=== PATIENT | male | born 1935 | race Caucasian/White ===

== ENCOUNTER 2016-09-19 12:01 | Inpatient (IN) | payer MEDICARE ==
[2016-09-19] MEDS ORDERED: SODIUM CHLORIDE 0.9% 1,000 ML IV STA (12:21)
[2016-09-19] MEDS ORDERED: RX INFO: IV CONTRAST WAS GIVEN 1 EACH MISC MISCELLANE PRN (12:34)
[2016-09-19 12:43] LABS: Basophils % (A) 0 %; CH 30.3; Eosinophils # (A) 0.1 k/uL (0-0.7); Eosinophils % (A) 1 %; HCT 44.4 % (39.0-53.0); HDW 2.77; HGB 14.9 gm/dL (13.0-17.5); Luc % (Auto) 2; Lymphocytes # (A) 1.7 k/uL (1.0-4.8); Lymphocytes % (A) 20 %; MCH 30.1 pg (25.0-35.0); MCHC 33.6 g/dL (31.0-37.0); MCV 89.5 fL (80.0-100.0); Mean Platelet Volume 6.7; Monocytes # (A) 0.5 k/uL (0-1.0); Monocytes % (A) 6 %; Neutrophils % (A) 70 %; RBC 4.96 m/uL (4.30-5.90); RDW 13.2 % (11.5-15.5); WBC 8.5 k/uL (3.8-10.6)
[2016-09-19 12:50] LABS: ALT 27 U/L (21-72); AST 26 U/L (17-59); Alkaline Phosphatase 69 U/L (38-126); Anion Gap 11 mmol/L; Blood Urea Nitrogen 24 mg/dL (9-20); Calcium 9.7 mg/dL (8.4-10.2); Carbon Dioxide 27 mmol/L (22-30); Chloride 105 mmol/L (98-107); Glucose 95 mg/dL (74-99); Non-African American GFR(MDRD) >60 (>60 ml/min/1.73 sqM); Potassium 4.7 mmol/L (3.5-5.1); Sodium 143 mmol/L (137-145); Total Bilirubin 1.2 mg/dL (0.2-1.3); Total Protein 7.6 g/dL (6.3-8.2)
[2016-09-19 12:51] LABS: INR 1.1 (<1.1); Prothrombin Time 10.6 sec (9.0-12.0)
--- NOTE | 2016-09-19 12:51 | CT ---
EXAMINATION TYPE: CT brain wo con DATE OF EXAM: 09/19/2016 12:46 PM COMPARISON: NONE HISTORY: Slurred speech x's [address] DLP: 1047.[address] of the brain was performed. The ventricles, basal cisterns and sulci overlying the cerebral convexities demonstrate mild enlargem ent. Small focal remote insult the left leahy radiata. There is no evidence for intracranial hemorrhage or sulcal effacement. There is decreased attenuation about the periventricular white matter and deep white matter of both c erebral hemispheres, compatible with chronic small vessel ischemia. Differential diagnosis does inclu de demyelination. No mass effects are seen.No midline shift. Osseous calvarium is intact. If symptoms persist consider MRI. IMPRESSION: 1. Age related atrophic and chronic small vessel ischemic change without acute intracranial process s een at this time.
[2016-09-19 13:02] LABS: Creatine Kinase 37 U/L (55-170)
[2016-09-19 13:06] LABS: Partial Thromboplastin Time 21.6 sec (22.0-30.0)
[2016-09-19 13:14] LABS: Creatine Kinase MB 0.6 ng/mL (0.0-2.4); Troponin I <0.012 ng/mL (0.000-0.034)
--- NOTE | 2016-09-19 13:18 | ED ---
General Adult HPI - General Chief complaint: Neuro Symptoms/Deficit Stated complaint: slurring speech Time Seen by Provider: 09/19/16 12:21 Source: patient, RN notes reviewed, old records reviewed Mode of arrival: wheelchair Limitations: no limitations - History of Present Illness Initial comments: This is an 7-year-old male here for evaluation. This patient presents for evaluation of slurred speech. Surgery About 11 AM this morning while he was getting massage. He states he noted difficulty in speaking, then his massage therapist noted the same. Patient has history of high blood pressure atherosclerosis CAD and stents. Patient has no prior history of this stroke symptoms neurological complaint. Patient denies chest pain or shortness of breath. Patient is not unable tenderness. No trauma. - Related Data Home Medications Medication Instructions Recorded Confirmed Ascorbic Acid [Vitamin C] 500 mg PO HS 09/19/16 09/19/16 Aspirin [Adult Low Dose Aspirin EC] 81 mg PO HS 09/19/16 09/19/16 Carboxymethylcellulose Sodium 1 drop BOTH EYES BID 09/19/16 09/19/16 [Refresh Tears] Cholecalciferol [Vitamin D3] 5,000 unit PO DAILY 09/19/16 09/19/16 Homocysteine 2 tab PO HS 09/19/16 09/19/16 Krill Oil 500 mg PO DAILY 09/19/16 09/19/16 Ubidecarenone [Co Q-10] 300 mg PO Q48H 09/19/16 09/19/16 Allergies Allergy/AdvReac Type Severity Reaction Status Date / Time Sulfa (Sulfonamide Allergy Rash/Hives Verified 09/19/16 13:16 Antibiotics) Review of Systems ROS Statement: Those systems with pertinent positive or pertinent negative responses have been documented in the HPI. ROS Other: All systems not noted in ROS Statement are negative. Past Medical History Past Medical History: Coronary Artery Disease (CAD), Eye Disorder, Hypertension Additional Past Medical History / Comment(s): HX OF KIDNEY STONES, History of Any Multi-Drug Resistant Organisms: None Reported Past Surgical History: Heart Catheterization With Stent, Prostate Surgery Additional Past Surgical History / Comment(s): KIDNEY STONE SX, Past Anesthesia/Blood Transfusion Reactions: No Reported Reaction Date of Last Stent Placement:: 2006 Past Psychological History: No Psychological Hx Reported Smoking Status: Never smoker Past Alcohol Use History: None Reported Past Drug Use History: None Reported General Exam - General Exam Comments Initial Comments: Slurred speech showing NIH of 1 Limitations: no limitations General appearance: alert, in no apparent distress Head exam: Present: atraumatic, normocephalic, normal inspection Eye exam: Present: normal appearance, PERRL, EOMI. Absent: scleral icterus, conjunctival injection, periorbital swelling ENT exam: Present: normal exam, mucous membranes moist Neck exam: Present: normal inspection. Absent: tenderness, meningismus, lymphadenopathy Respiratory exam: Present: normal lung sounds bilaterally. Absent: respiratory distress, wheezes, rales, rhonchi, stridor Cardiovascular Exam: Present: regular rate, normal rhythm, normal heart sounds. Absent: systolic murmur, diastolic murmur, rubs, gallop, clicks GI/Abdominal exam: Present: soft, normal bowel sounds. Absent: distended, tenderness, guarding, rebound, rigid Extremities exam: Present: normal inspection, full ROM, normal capillary refill. Absent: tenderness, pedal edema, joint swelling, calf tenderness Back exam: Present: normal inspection Neurological exam: Present: alert, oriented X3, CN II-XII intact Psychiatric exam: Present: normal affect, normal mood Skin exam: Present: warm, dry, intact, normal color. Absent: rash Course Vital Signs 09/19/16 09/19/16 09/19/16 12:06 12:14 12:32 Temperature 98.2 F Pulse Rate 70 63 55 L Respiratory 18 16 16 Rate Blood Pressure 131/81 180/85 157/76 O2 Sat by Pulse 98 97 100 Oximetry 09/19/16 09/19/16 09/19/16 12:47 13:02 13:16 Temperature 97.8 F Pulse Rate 56 L 57 L 58 L Respiratory 16 16 16 Rate Blood Pressure 157/76 156/78 143/71 O2 Sat by Pulse 99 100 99 Oximetry EKG Findings - EKG Comments: EKG Findings:: EKG shows normal sinus rhythm rate of 61, SC 136, QRS 90, QTc 442 Medical Decision Making - Medical Decision Making This 79 female to ER for evaluation of mild mild slurred speech, no worsening of neurological symptoms, patient did present within range of TPA although decision to TPA was not not give TPA was made secondary to patient's low NIH. Patient is an age of [age] remains at that baseline neurologically, will be admitted for neurological examination treatment, aspirin. MRI - Lab Data Result diagrams: 09/19/16 12:30 09/19/16 12:30 Lab Results 09/19/16 09/19/16 09/19/16 Range/Units 12:30 12:30 12:30 WBC 8.5 (3.8-10.6) k/uL RBC 4.96 (4.30-5.90) m/uL Hgb 14.9 (13.0-17.5) gm/dL Hct 44.4 (39.0-53.0) % MCV 89.5 (80.0-100.0) fL MCH 30.1 (25.0-35.0) pg MCHC 33.6 (31.0-37.0) g/dL RDW 13.2 (11.5-15.5) % Plt Count 185 (150-450) k/uL Neutrophils % 70 % Lymphocytes % 20 % Monocytes % 6 % Eosinophils % 1 % Basophils % 0 % Neutrophils # 6.0 (1.3-7.7) k/uL Lymphocytes # 1.7 (1.0-4.8) k/uL Monocytes # 0.5 (0-1.0) k/uL Eosinophils # 0.1 (0-0.7) k/uL Basophils # 0.0 (0-0.2) k/uL PT (9.0-12.0) sec INR (<1.1) APTT (22.0-30.0) sec Sodium 143 (137-145) mmol/L Potassium 4.7 (3.5-5.1) mmol/L Chloride 105 (98-107) mmol/L Carbon Dioxide 27 (22-30) mmol/L Anion Gap 11 mmol/L BUN 24 H (9-20) mg/dL Creatinine 1.10 (0.66-1.25) mg/dL Est GFR (MDRD) Af Amer >60 (>60 ml/min/1.73 sqM) Est GFR (MDRD) Non-Af >60 (>60 ml/min/1.73 sqM) Glucose 95 (74-99) mg/dL Calcium 9.7 (8.4-10.2) mg/dL Total Bilirubin 1.2 (0.2-1.3) mg/dL AST 26 (17-59) U/L ALT 27 (21-72) U/L Alkaline Phosphatase 69 (38-126) U/L Total Creatine Kinase 37 L (55-170) U/L CK-MB (CK-2) 0.6 (0.0-2.4) ng/mL CK-MB (CK-2) Rel Index 1.6 Troponin I <0.012 (0.000-0.034) ng/mL Total Protein 7.6 (6.3-8.2) g/dL Albumin 4.3 (3.5-5.0) g/dL 09/19/16 Range/Units 12:30 WBC (3.8-10.6) k/uL RBC (4.30-5.90) m/uL Hgb (13.0-17.5) gm/dL Hct (39.0-53.0) % MCV (80.0-100.0) fL MCH (25.0-35.0) pg MCHC (31.0-37.0) g/dL RDW (11.5-15.5) % Plt Count (150-450) k/uL Neutrophils % % Lymphocytes % % Monocytes % % Eosinophils % % Basophils % % Neutrophils # (1.3-7.7) k/uL Lymphocytes # (1.0-4.8) k/uL Monocytes # (0-1.0) k/uL Eosinophils # (0-0.7) k/uL Basophils # (0-0.2) k/uL PT 10.6 (9.0-12.0) sec INR 1.1 (<1.1) APTT 21.6 L (22.0-30.0) sec Sodium (137-145) mmol/L Potassium (3.5-5.1) mmol/L Chloride (98-107) mmol/L Carbon Dioxide (22-30) mmol/L Anion Gap mmol/L BUN (9-20) mg/dL Creatinine (0.66-1.25) mg/dL Est GFR (MDRD) Af Amer (>60 ml/min/1.73 sqM) Est GFR (MDRD) Non-Af (>60 ml/min/1.73 sqM) Glucose (74-99) mg/dL Calcium (8.4-10.2) mg/dL Total Bilirubin (0.2-1.3) mg/dL AST (17-59) U/L ALT (21-72) U/L Alkaline Phosphatase (38-126) U/L Total Creatine Kinase (55-170) U/L CK-MB (CK-2) (0.0-2.4) ng/mL CK-MB (CK-2) Rel Index Troponin I (0.000-0.034) ng/mL Total Protein (6.3-8.2) g/dL Albumin (3.5-5.0) g/dL - Radiology Data Radiology results: report reviewed (CT CTA shows no acute disease), image reviewed Disposition Clinical Impression: Cerebrovascular accident Disposition: ADMITTED IP TO THIS [facility] Condition: Fair Referrals: Troy Diaz DO [Primary Care Provider] - 1-2 days
[2016-09-19] MEDS ORDERED: ASPIRIN 325 MG TAB PO STA (13:30)
--- NOTE | 2016-09-19 13:37 | CT ---
EXAMINATION TYPE: CT angio head neck DATE OF EXAM: 09/19/2016 1:27 PM COMPARISON: NONE HISTORY: slurred speech, cva symptoms CT DLP: 2123.4 mGycm CONTRAST: Performed with IV Contrast, patient injected with 65 mL of Omnipaque 350. Combination Contrast CTA cervical carotids and [place] of Leal CTA cervical carotids with 3-D recons truction Contrast CTA of the cervical carotids was performed 3-D reconstruction imaging obtained at a separate workstation. Right carotid system: Mild plaque is seen of the right common carotid artery. There is mild plaque a lso noted at the carotid bulb and proximal ICA. No significant diameter reduction. ECA is patent. Right vertebral artery appears unremarkable. Left carotid system: Mild plaque is seen of the left common carotid artery. There is mild plaque als o noted at the carotid bulb and proximal ICS. No significant diameter reduction. ECA is patent. Lef t vertebral artery appears unremarkable. IMPRESSION: 1. No significant diameter reduction to account for the patient's symptoms. CTA pic[place]une of Leal with 3-D reconstruction Contrast CTA of the [place] of Leal was performed 3-D reconstruction imaging obtained at a separate workstation. Vertebrobasilar system as well as intracranial portions of the internal carotid arteries and their ma janett tributaries are patent. 5.5 mm aneurysm is noted at the left MCA trifurcation. No additional aneu rysm seen with certainty. Please note MRI provides greater sensitivity and specificity. Visualized b rain appears grossly unremarkable. IMPRESSION: 1. 5.5 mm aneurysm is noted at the left MCA trifurcation.
--- NOTE | 2016-09-19 14:07 | XR ---
EXAMINATION TYPE: XR chest 2V DATE OF EXAM: 09/19/2016 1:39 PM COMPARISON: CT scan 19 September 2016 HISTORY: altered mental status TECHNIQUE: Frontal and lateral views of the chest are obtained on 4 images. FINDINGS: There is no pleural effusion, or pneumothorax seen. The cardiac silhouette size is within normal limits. Nodular density present in the right upper lobe likely corresponds to scar. Minimal p atchy density in the right lower lobe. The osseous structures are intact. IMPRESSION: Probable scars. No acute cardiopulmonary disease is evident
[2016-09-19 15:32] LABS: Glucose,Whole Blood 86 mg/dL (75-99)
--- NOTE | 2016-09-19 15:35 | US ---
EXAMINATION TYPE: US carotid duplex BILAT DATE OF EXAM: 09/19/2016 2:15 PM COMPARISON: Prior exam February CLINICAL HISTORY: Stenosis. Slurred speech EXAM MEASUREMENTS: RIGHT: Peak Systolic Velocity (PSV) cm/sec ----- Right CCA: 81.3 ----- Right ICA: 90.3 ----- Right ECA: 74.5 ICA/CCA ratio: 1.1 RIGHT: End Diastole cm/sec ----- Right CCA: 18.8 ----- Right ICA: 27.5 ----- Right ECA: 0.0 LEFT: Peak Systolic Velocity (PSV) cm/sec ----- Left CCA: 81.0 ----- Left ICA: 93.7 ----- Left ECA: 117.3 ICA/CCA ratio: 1.2 LEFT: End Diastole cm/sec ----- Left CCA: 13.7 ----- Left ICA: 24.6 ----- Left ECA: 5.8 VERTEBRALS (direction of flow): Right Vertebral: Antegrade Left Vertebral: Antegrade Mild plaque, no significant velocity elevations. Grayscale, color Doppler, spectral Doppler imaging performed of the carotid arteries IMPRESSION: No hemodynamic significant stenosis of the proximal internal carotid arteries bilaterall y by Doppler criteria, an indirect measurement of carotid stenosis
[2016-09-19] MEDS: SODIUM CHLORIDE 0.9% 1,000 ML IV SCH (16:08)
--- NOTE | 2016-09-19 22:38 | HP ---
DATE OF ADMISSION: 09/19/2016 CHIEF COMPLAINT: Slurring of speech. HISTORY OF PRESENT ILLNESS: This 81 -year-old gentleman with past medical history of multiple medical problems including CAD, hypertension, history of kidney stones, history of surgery was noted to have slurring of speech this morning. Patient apparently went to dentist appointment and massage therapist and because of increasing slurring of speech, the patient came to [facility] and was admitted for further evaluation and treatment. The patient was noted to have drooping of the face on the right side. There is no history of any fever, rigors. No history of headache, loss of consciousness or seizures. PAST MEDICAL HISTORY: History of coronary artery disease, history of hypertension, coronary artery disease and stent. Medications prior to admission showed: 1. Homocysteine 2 tablets q.h.s. 2. Aspirin 81 mg daily. 3. Vitamin C 500 mg. 4. Coenzyme Q 300 mg q.48 hours. 5. Artificial tears. 6. 5 mg daily. 7. Vitamin D3 5000 daily. ALLERGIES: SULFA. FAMILY HISTORY: No history of heart disease or strokes in the family. SOCIAL HISTORY: No history of smoking. No history of alcohol intake. REVIEW OF SYSTEMS: ENT: As mentioned earlier. CARDIOVASCULAR: No angina or palpitations. RESPIRATORY: As mentioned earlier. GI: As mentioned earlier. : No dysuria. Nervous system: As mentioned earlier. ALLERGY/IMMUNOLOGY: No asthma or hayfever. MUSCULOSKELETAL: As mentioned earlier. HEMATOLOGY/ONCOLOGY: No history of anemia. ENDOCRINE: NO history of diabetes. CONSTITUTIONAL: As mentioned earlier. DERMATOLOGY: Negative. RHEUMATOLOGY: Negative. PSYCHIATRY: As mentioned earlier. PHYSICAL EXAMINATION: The patient is alert and oriented times three. Pulse 54, blood pressure 140/67. Respirations 18, temperature 97.9, pulse ox 97% on 2 liters. HEENT: Conjunctivae normal. Oral mucosa moist. NECK: No jugular venous distention. No carotid bruit. CARDIOVASCULAR: S1, S2 muffled. No S3, no S4. RESPIRATORY: Breath sounds diminished at the bases. No rhonchi. No crackles. ABDOMEN: Soft, nontender. No mass palpable. LEGS: No edema. No swelling. CENTRAL NERVOUS SYSTEM: Higher functions as mentioned earlier. Moves all four limbs. Examination of the cranial nerves upper motor neuron facial palsy on the right side present otherwise, moves all 4 limbs. Minimal weakness upper limbs. LYMPHATICS: No lymph nodes palpable in the neck, axillae or groin. SKIN: No ulcers, rashes or bleeding. No sensory abnormalities. Joints: No active deforming arthropathy. LABS: CBC within normal limits and creatinine kinase 37. ASSESSMENT: 1. Acute stroke on the right side caused by left side stroke. 2. Dysarthria. 3. 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 4. Coronary artery disease and stent. 5. Hypertension. 6. Nephrolithiasis. 7. History of prostate surgery. RECOMMENDATIONS AND DISCUSSION: In tis 81-year-old gentleman who presented with multiple complex medical issues, we will monitor the patient closely, continue the current medications. Continue symptomatic treatment. Otherwise, at this time I would recommend antiplatelet agents. Stroke work-up. Neurovascular work-up as well as neurology evaluation. Neurochecks . A carotid ultrasound showed no hemodynamically significant stenosis. CT angiogram showed no significant reduction was also noted 5.5 mm aneurysm noted in the left MCA trifurcation. The prognosis is guarded. Further recommendations to follow. MTDD
--- NOTE | 2016-09-20 07:00 | CONS ---
DATE OF CONSULTATION: 09/19/2016 CHIEF COMPLAINT: Stroke. HISTORY OF PRESENT ILLNESS: Mr. Pierson is a pleasant 81-year-old male who is being evaluated by the neurology service per the request of Dr. Howard for a stroke. The patient was brought into [facility] Emergency Room after he was noticed to be slurring his speech significantly. The patient was getting massage therapy for his upper back pain when the massage therapist noticed that his speech is quite slurred. The patient did not have any numbness or tingling in his extremities. The patient does admit that his speech was quite slurred and he has also noticed that he was having difficulty saying the words that he wanted to say. He denies any previous episode similar to this. In the emergency room, the patient's blood pressure was found to be elevated at 180/85. The patient does have history of hypertension and coronary artery disease and has a single coronary artery stent placed approximately 10 years ago. He does take aspirin 81 mg daily at home. A CT scan of the brain was done in the emergency room which showed generalized atrophy and small vessel ischemic changes. A CT angiogram was done, which showed no significant stenosis. His carotid Doppler showed no hemodynamically significant stenosis. His CBC, INR, cardiac enzymes and comprehensive metabolic profile were reviewed and were within normal limits. At the time of my evaluation, the patient states that his speech difficulties and slurring have significantly improved but have not completely resolved. He denies any headache or dizziness. PAST MEDICAL HISTORY: Hypertension, coronary artery disease, history of coronary artery stent placement, history of prostate surgery, history of nephrolithiasis. SOCIAL HISTORY: He denies any tobacco, alcohol or drug use. FAMILY HISTORY: Noncontributory. HOME MEDICATIONS: Reviewed in the chart. ALLERGIES: SULFA DRUGS. REVIEW OF SYSTEMS: CONSTITUTIONAL: Negative. EYES: Positive for chronic diminished vision. ENT: Negative. CARDIOVASCULAR: As mentioned above. He denies any chest pain at this time. RESPIRATORY: Negative. NEUROLOGICAL: As mentioned above. GASTROINTESTINAL: Negative. GENITOURINARY: Negative. PSYCHIATRIC: Negative. ENDOCRINE: Negative. MUSCULOSKELETAL: Positive for occasional joint pain. DERMATOLOGICAL: Negative. PSYCHIATRIC: Negative. PHYSICAL EXAM: Vital signs show a temperature of 98.0, pulse 54, respirations 20, blood pressure 155/77. GENERAL APPEARANCE: The patient is a thin, elderly male who appears to be in no acute distress. HEENT: Normocephalic, atraumatic, mild left facial droop is seen. Neck is supple with no masses felt. CARDIOVASCULAR: Regular rate and rhythm. ABDOMEN: Nontender, nondistended. Extremities showed no edema or clubbing. NEUROLOGICAL EXAM: The patient is alert, aware, and oriented x3. Speech is slightly dysarthric. Language testing was normal. Cranial nerve testing showed a slight left facial droop. Sensory exam was normal to light touch in all 4 extremities. Strength is full in all 4 extremities. No pronator drift is seen. No tremors are noticed. IMPRESSION: 1. Acute ischemic stroke, likely involving the right middle cerebral artery. 2. Dysarthria, improved. 3. Small vessel ischemic disease. 4. Hypertension. RECOMMENDATIONS: The patient does appear to have suffered an acute ischemic stroke. His symptoms of dysarthria have improved but have not resolved. He is currently on aspirin daily. I will switch his aspirin to Plavix 75 mg daily. I will order an MRI of the brain, fasting lipid panel, EEG and serum homocysteine level. I will consult speech therapy to evaluate and treat. Continue IV hydration as tolerated. Continue neuro checks. I will continue to follow with you. Further recommendations to follow. Thank you for allowing me to participate in the care of your patient. If you have any questions, please feel free to contact me.
[2016-09-20 07:20] LABS: Cholesterol 189 mg/dL (<200); HDL Cholesterol 47 mg/dL (40-60); Triglycerides 95 mg/dL (<150)
[2016-09-20] MEDS ORDERED: ASPIRIN 325 MG TAB PO SCH (09:00)
[2016-09-20] MEDS: CLOPIDOGREL 75 MG TAB PO SCH (09:30)
--- NOTE | 2016-09-20 10:49 | ECHOF ---
Referral Reason:Thrombus MEASUREMENTS -------- HEIGHT: 190.5 cm WEIGHT: 81.7 kg BP: RVIDd: 3.2 cm (< 3.3) IVSd: 1.1 cm (0.6 - 1.1) LVIDd: 4.9 cm (3.9 - 5.3) LVPWd: 1.1 cm (0.6 - 1.1) IVSs: 2.2 cm LVIDs: 3.0 cm LVPWs: 1.4 cm LA Diam: 3.5 cm (2.7 - 3.8) LAESV Index (A-L): 16.46 ml/m Ao Diam: 3.1 cm (2.0 - 3.7) AV Cusp: 1.8 cm (1.5 - 2.6) LA Diam: 3.0 cm (2.7 - 3.8) MV EXCURSION: 13.883 mm (> 18.000) MV EF SLOPE: 69 mm/s (70 - 150) EPSS: 0.8 cm MV E Tristian: 0.51 m/s MV DecT: 365 ms MV A Tristian: 0.44 m/s MV E/A Ratio: 1.16 RAP: 5.00 mmHg RVSP: 33.54 mmHg FINDINGS -------- Resting bradycardia (HR<60bpm). This was a technically difficult study with suboptimal views. There is borderline concentric left ventricular hypertrophy. Overall left ventricular systolic function is normal with, an EF between 55 - 60 %. The right ventricle is mildly enlarged. Normal LA size by volume 22+/-6 ml/m2. The right atrium is normal in size. Aortic valve is trileaflet and is mildly thickened. The mitral valve leaflets are mildly thickened. Mild mitral annular calcification present. Mild mitral regurgitation is present. Mild tricuspid regurgitation present. The right ventricular systolic pressure, as measured by Doppler, is 33.54mmHg. Trace/mild (physiologic) pulmonic regurgitation. The aortic root size is normal. IVC Not well visulized. Echo free space may represent effusion or a pericardial fat pad. CONCLUSIONS -------- 1. Resting bradycardia (HR<60bpm). 2. Mild mitral annular calcification present. 3. Mild mitral regurgitation is present. 4. Mild tricuspid regurgitation present. 5. The right ventricular systolic pressure, as measured by Doppler, is 33.54mmHg. 6. Trace/mild (physiologic) pulmonic regurgitation. 7. The aortic root size is normal. 8. IVC Not well visulized. 9. Echo free space may represent effusion or a pericardial fat pad. 10. This was a technically difficult study with suboptimal views. 11. There is borderline concentric left ventricular hypertrophy. 12. Overall left ventricular systolic function is normal with, an EF between 55 - 60 %. 13. The right ventricle is mildly enlarged. 14. Normal LA size by volume 22+/-6 ml/m2. 15. The right atrium is normal in size. 16. Aortic valve is trileaflet and is mildly thickened. 17. The mitral valve leaflets are mildly thickened. VAULT PERSON: Flaquito Green RDCS
[2016-09-20] MEDS: ARTIFICIAL TEARS-HYPROMELLOSE DROPS 15 ML BTL BOTH EYES SCH ×2 (12:09→22:43)
[2016-09-20] MEDS: CHOLECALCIFEROL 1,000 UNIT TAB PO SCH (12:12)
[2016-09-20 15:27] LABS: Appearance,Urine Clear (Clear); Bilirubin,Urine Negative (Negative); Glucose,Urine (UA) Negative (Negative); Ketones,Urine Negative (Negative); Leukocyte Esterase,Urine Negative (Negative); Nitrite,Urine Negative (Negative); Protein,Urine Negative (Negative); Specific Gravity,Urine 1.015 (1.001-1.035); UA Billing (MACRO vs. MICRO) CHEM; Urobilinogen,Urine <2.0 mg/dL (<2.0)
[2016-09-20] MEDS: SODIUM CHLORIDE 0.9% 1,000 ML IV SCH ×3 (18:08→22:43)
--- NOTE | 2016-09-20 19:09 | MR ---
EXAMINATION TYPE: MR brain wo con DATE OF EXAM: 09/20/2016 7:03 PM COMPARISON: NONE HISTORY: CVA, droopy rt side of mouth FINDINGS: The ventricles, basal cisterns and sulci overlying the cerebral convexities are mildly enlarged. There is evidence of mild to moderate periventricular white matter ischemic demyelination. Remote deep white matter insults are also noted. 1.2 cm focus of acute focal edema on diffusion weighted imaging within the left mid leahy radiata co mpatible with acute vascular insult. No evidence for cortical insult. There is no evidence for midline shift or mass effect. Acute intracranial hemorrhage or extra-axial collection is not evident. There is evidence of chronic pansinusitis. Mastoid air cells are well-aerated. IMPRESSION: 1. There is a 1.2 cm focus of acute focal edema on diffusion weighted imaging within the left mid cor chay radiata compatible with acute vascular insult. 2. Age-related atrophic and chronic small vessel ischemic change.
--- NOTE | 2016-09-20 21:57 | P.PN ---
Subjective Principal diagnosis: Ischemic Stroke Patient is an 81-year-old male being followed by neurology for ischemic stroke. Patient originally presented with slurred speech to the emergency room. Patient had difficulty stating words that he wanted to say. Denied any previous episode or similar occurrence. Blood pressure was elevated at that time at 180/85. Patient has a history of hypertension and coronary artery disease with single stent placed approximately 10 years ago. Patient is on home [address] scan of the brain in the emergency department shows generalized atrophy and small vessel ischemic changes. CT angiogram was done which showed no significant stenosis. Carotid Doppler showed no hemodynamically significant stenosis. CBC, INR, cardiac enzymes and CMP were within normal limits. Patient still has speech difficulty and slurring of his words but it has improved but not completely resolved. Patient also has perioral droop on the left side. On contact, the patient was supine in bed resting, alert and oriented 3 in no acute distress with family present. Objective - Vital Signs Vital signs: Vital Signs Temp 96.9 F L 09/20/16 16:00 Pulse 57 L 09/20/16 16:00 Resp 20 09/20/16 16:00 BP 122/68 09/20/16 16:00 Pulse Ox 97 09/20/16 16:00 Intake & Output 09/20/16 09/20/16 09/21/16 06:59 18:59 06:59 Intake Total 1920 Output Total 500 1050 Balance -500 870 Weight 78.8 kg Intake: Intake, IV Titration 1200 Amount Sodium Chloride 0.9% 1, 1200 000 ml @ 100 mls/hr IV . Q10H [facility] Rx#:[id number] Oral 720 Output: Urine 500 1050 Other: Voiding Method Urinal # Voids 1 1 - Exam Constitutional: AOx3, cooperative HEENT: NC/AT, no facial asymmetry is seen. neck: Supple, no masses Respiratory: No increased work of breathing Cardiac: Regular rate and Rhythm GI: non tender, non distended Musculoskeletal: [employer] strengths are equal bilaterally 5/5, Lower extremity strengths are equal bilaterally at 5/5. Neurological: CN II-XII in tact, patient was AOx3, speech still slightly dysarthric. Language was normal, left perioral drooping, no seizure activity, tremors or pronator drift noted on physical exam. Sensation was normal. Integementary: no rash, no erythema Psychiatric: mood and affect appropriate - Constitutional Constitutional Comment(s): all systems not noted in HPI above are negative - Labs CBC & Chem 7: 09/19/16 12:30 09/19/16 12:30 Labs: Abnormal Lab Results - Last 24 Hours (Table) 09/20/16 Range/Units 06:45 LDL Cholesterol, Calc 123 H (0-99) mg/dL Assessment and Plan (1) Dysarthria as late effect of cerebrovascular accident (CVA) Status: Acute (2) Hypertension Status: Acute (3) Cerebrovascular accident Status: Acute Plan: Patient does appear to have suffered an acute ischemic stroke. Symptoms of dysarthria have improved but not resolved. Facial droop has not resolved. Patient was switched to Plavix 75 mg daily. MRI of the brain noted a 1.2 cm focus of acute focal edema on diffusion weighted imaging within the left mid leahy radiata compatible with acute vascular insult. Age related atrophic and chronic small vessel ischemic change noted. EEG still pending. Fasting lipid panel only noted LDL elevated at 123. Serum homocystine was normal. Prescribed Lipitor 40 mg daily at bedtime. OT, PT and speech have been consulted already. Status: Neurology will continue to follow and provide updates as needed or warranted. Please feel free to contact our office with any questions. I discussed the patient's pertinent medical information with Dr. Mart. He agrees with the plan of care as implemented.
[2016-09-20] MEDS: ASCORBIC ACID 500 MG TAB PO SCH (22:42)
[2016-09-20] MEDS: ATORVASTATIN 40 MG TAB PO SCH (22:43)
--- NOTE | 2016-09-20 22:45 | PN ---
DATE OF SERVICE: 09/20/2016 This 81-year-old gentleman who was admitted with slurring of speech and TIA is being closely monitored. The patient also had MRI and angiogram was done. Seen and evaluated the patient along with nurse practitioner. Please refer to the nurse practitioner notes and impression documented as a scribe for further information. Dr. Mart is following the patient has significant weakness of the right side of the face as well as right upper arm also. NIMISHA
[2016-09-21] MEDS: SODIUM CHLORIDE 0.9% 1,000 ML IV SCH ×2 (07:31→17:30)
[2016-09-21] MEDS: CLOPIDOGREL 75 MG TAB PO SCH (07:40)
[2016-09-21] MEDS: ARTIFICIAL TEARS-HYPROMELLOSE DROPS 15 ML BTL BOTH EYES SCH ×2 (07:43→21:33)
--- NOTE | 2016-09-21 09:57 | EEG ---
DATE OF SERVICE: 09/20/2016 REASON FOR TESTING: Stroke. AGE: 81Y DESCRIPTION OF THE PROCEDURE: This EEG was performed using a 21-channel digital electroencephalograph, following the international 10 - 20 system. DESCRIPTION OF THE RECORDING: From the beginning of the tracing, and with the patient's eyes closed, the background rhythm was mostly consisting of 8 to 9 Hz alpha frequency in the posterior occipital leads. No obvious asymmetry is seen. Photic stimulation was performed with a minimal driving response seen. No pathological waves were elicited. Hyperventilation was not performed. The patient does reach stage II of sleep during the tracing and occasional sleep spindles are seen. No epileptiform discharges were seen. His EKG lead showed a regular rate and rhythm. INTERPRETATION: This asleep and awake EEG can be considered within normal limits. There was no asymmetry seen. No epileptiform discharges were noticed. The absence of epileptiform discharges does not rule out the diagnosis of epilepsy; therefore, clinical correlation is recommended.
--- NOTE | 2016-09-21 10:11 | P.PN ---
Subjective Date of service 09/20/2016. Progress note being dictated for Dr. Howard. Interval history: This is an 81-year-old gentleman admitted with acute CVA slurring of speech and multiple other medical issues. Continues to have significant right-side of face weakness. MRI pending. Evaluated by neurology with recommendations noted. Telemetry sinus bradycardia-sinus rhythm. Evaluated by speech therapy with dysphasia diet recommended. Denies chest pain , palpitations or increasing shortness of breath. Denies lightheadedness dizziness or focal deficits. Denies nausea vomiting or diarrhea. Objective - Vital Signs Vital signs: Vital Signs Temp 96.9 F L 09/20/16 16:00 Pulse 57 L 09/20/16 16:00 Resp 20 09/20/16 16:00 BP 122/68 09/20/16 16:00 Pulse Ox 97 09/20/16 16:00 Intake & Output 09/19/16 09/20/16 09/20/16 18:59 06:59 18:59 Intake Total 200 1680 Output Total 500 1050 Balance 200 -500 630 Weight 81.64 kg 78.8 kg Intake: Intake, IV Titration 1200 Amount Sodium Chloride 0.9% 1, 1200 000 ml @ 100 mls/hr IV . Q10H [facility] Rx#:[id number] Oral 200 480 Output: Urine 500 1050 Other: Voiding Method Urinal # Voids 1 1 1 - Exam PHYSICAL EXAM: VITAL SIGNS: As above GENERAL: [Sitting up in bed, no acute distress] HEENT: [Pupils equal conjunctiva normal. Mucosa moist, right facial droop] NECK: [Supple, no JVD] RESPIRATORY EFFORT:[Normal] LUNGS: [Bilateral bases diminished, no wheezing rhonchi or crackles] CARDIOVASCULAR[regular S1-S2, occasional mild bradycardia, no murmurs rubs or gallops, no edema] GI: [Abdomen soft, nontender, positive bowel sounds.] PSYCH: [Alert and oriented -3, mood and affect normal.] NEURO: [Clear functions as previously mentioned, moves all 4 extremities, Right facial droop present, dysarthria present-appropriate language, minimal upper limb weakness ,sensory grossly intact.] - Labs CBC & Chem 7: 09/19/16 12:30 09/19/16 12:30 Labs: Abnormal Lab Results - Last 24 Hours (Table) 09/20/16 Range/Units 06:45 LDL Cholesterol, Calc 123 H (0-99) mg/dL Assessment and Plan Plan: 1. Acute CVA of the right. 2. Dysarthria. 3. 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 4. [CAD]. 5. [Hypertension]. 6. [Nephrolithiasis]. 7. [History of prostate surgery]. Plan: Continue on current medication regime , statin, anticoagulation, monitoring and symptomatic treatment. MRI pending. Follow closely with neurology. Dysphasia diet with aspiration precautions. Evaluated by physical therapy, home with home care recommended at discharge. Prognosis guarded. Further recommendations to follow. The impression and plan of care has been dictated as directed. : I performed a H&P examination of this patient and discussed the same with the dictator. I agree with the dictator's note. Any additional findings/opinions/ etc. will be noted.
--- NOTE | 2016-09-21 13:10 | P.CRDCN ---
History of Present Illness Consult date: 09/21/16 Requesting physician: Adebayo Howard Reason for Consult (text): CVA Chief complaint: Slurring of speech and right facial droop History of present illness: This is a pleasant 81-year-old gentleman with known history of coronary artery disease and prior stent placement, hypertension, hyperlipidemia , who presented to the hospital with symptoms of slurring speech as well as a right-sided facial droop. The pressure on arrival to the emergency room 180/ 85. CT of the brain performed in the emergency room showed generalized atrophy and small vessel ischemia. A CT angiogram was performed which showed no significant stenosis. Carotid Doppler study revealed no more dynamically significant stenosis. Echocardiogram with Doppler study was performed which revealed an ejection fraction of 55-60%. Echo free space noted which may represent effusion or pericardial fat pad. EKG showed normal sinus rhythm with nonspecific ST-T wave changes and incomplete right bundle branch block pattern. Heart rate on the monitor mid 50s to low 60s. No evidence of atrial fibrillation. Blood pressure this morning 134/80. MRI of the brain revealed a 1.2 centimeter focus of acute focal edema on diffusion-weighted imaging within the left mid leahy compatible with acute vascular insult. Age-related atrophic and small vessel ischemic change noted. Laboratory data, CBC normal, potassium 4.7, BUN 24, creatinine 1.1. Troponin 0.012. At the time of my examination, patient continues to have mild right-sided facial droop with mild slurring of speech, [place] to the patient and his is much improved from his admission here. Cardiology consultation was requested for possible TIANNA. The risks and the benefits of TIANNA were explained to the patient and his family in detail, they are willing to proceed. Past Medical History Past Medical History: Coronary Artery Disease (CAD), Eye Disorder Additional Past Medical History / Comment(s): HX OF KIDNEY STONES, cataracts History of Any Multi-Drug Resistant Organisms: None Reported Past Surgical History: Heart Catheterization With Stent, Prostate Surgery Additional Past Surgical History / Comment(s): KIDNEY STONE SX, Past Anesthesia/Blood Transfusion Reactions: No Reported Reaction Date of Last Stent Placement:: 2006 Past Psychological History: No Psychological Hx Reported Smoking Status: Never smoker Past Alcohol Use History: None Reported Past Drug Use History: None Reported - Past Family History Mother Family Medical History: No Reported History Father History Unknown: Yes Medications and Allergies Home Medications Medication Instructions Recorded Confirmed Type Ascorbic Acid [Vitamin C] 500 mg PO HS 09/19/16 09/19/16 History Aspirin [Adult Low Dose Aspirin EC] 81 mg PO HS 09/19/16 09/19/16 History Carboxymethylcellulose Sodium 1 drop BOTH EYES BID 09/19/16 09/19/16 History [Refresh Tears] Cholecalciferol [Vitamin D3] 5,000 unit PO DAILY 09/19/16 09/19/16 History Homocysteine 2 tab PO HS 09/19/16 09/19/16 History Krill Oil 500 mg PO DAILY 09/19/16 09/19/16 History Ubidecarenone [Co Q-10] 300 mg PO Q48H 09/19/16 09/19/16 History Allergies Allergy/AdvReac Type Severity Reaction Status Date / Time Sulfa (Sulfonamide Allergy Rash/Hives Verified 09/19/16 13:16 Antibiotics) Physical Exam Vitals: Vital Signs Temp Pulse Resp BP Pulse Ox 09/21/16 11:56 97.1 F L 64 18 134/79 98 09/21/16 07:50 97.0 F L 65 16 160/85 96 09/21/16 04:00 97.3 F L 55 L 18 143/79 98 09/21/16 00:00 55 L 18 137/75 95 09/20/16 20:00 96.7 F L 52 L 18 127/73 98 09/20/16 16:00 96.9 F L 57 L 20 122/68 97 Intake and Output 09/20/16 09/21/16 09/21/16 22:59 06:59 14:59 Intake Total 1040 800 120 Output Total 300 Balance 1040 500 120 Intake: IV 800 800 Sodium Chloride 0.9% 1, 800 800 000 ml @ 100 mls/hr IV . Q10H [facility] Rx#:[id number] Oral 240 120 Output: Urine 300 Other: Voiding Method Urinal Urinal Urinal Weight 80.5 kg PHYSICAL EXAMINATION: HEENT: Head is atraumatic, normocephalic. Pupils equal, round. Neck is supple. There is no elevated jugular venous pressure. HEART EXAMINATION: S1 and S2 systolic murmur heard. CHEST EXAMINATION: Lungs are clear to auscultation and precussion. No chest wall tenderness is noted on palpation or with deep breathing. ABDOMEN: Soft, nontender. Bowel sounds are heard. No organomegaly noted. EXTREMITIES: 2+ peripheral pulses with no evidence of peripheral edema and no calf tenderness noted. NEUROLOGIC patient is awake, alert and oriented -3. Mild right-sided facial droop and slurring of speech noted . Results 09/19/16 12:30 09/19/16 12:30 Current Medications Generic Name Dose Route Start Last Admin Trade Name Freq PRN Reason Stop Dose Admin Artificial Tears 1 drops 09/20/16 11:45 09/21/16 07:43 Artificial Tear Drops BOTH EYES 1 drops BID [facility] Administration Ascorbic Acid 500 mg 09/20/16 21:00 09/20/16 22:42 Vitamin C PO 500 mg HS [facility] Administration Atorvastatin Calcium 40 mg 09/20/16 22:00 09/20/16 22:43 Lipitor PO 40 mg HS [facility] Administration Cholecalciferol 5,000 unit 09/20/16 12:00 09/20/16 12:12 Vitamin D3 PO 5,000 unit 1200 [facility] Administration Clopidogrel Bisulfate 75 mg 09/20/16 09:00 09/21/16 07:40 Plavix PO 75 mg DAILY [facility] Administration Sodium Chloride 1,000 mls @ 100 mls/hr 09/19/16 13:30 09/21/16 07:31 Saline 0.9% IV Not Given .Q10H [facility] Intake and Output 09/20/16 09/21/16 09/21/16 22:59 06:59 14:59 Intake Total 1040 800 120 Output Total 300 Balance 1040 500 120 Intake: IV 800 800 Sodium Chloride 0.9% 1, 800 800 000 ml @ 100 mls/hr IV . Q10H [facility] Rx#:[id number] Oral 240 120 Output: Urine 300 Other: Voiding Method Urinal Urinal Urinal Weight 80.5 kg EKG Interpretations (text) EKG shows a normal sinus rhythm with nonspecific ST-T wave changes, incomplete right bundle branch block pattern. Assessment and Plan Plan: Assessment and plan #1 acute CVA #2 known history of coronary artery disease with prior stent placement, currently not on beta theresa because of bradycardia. #3 hypertension #4 hyperlipidemia Plan Patient has been explained the risks and the benefits of undergoing a transesophageal echocardiographic study. This will be performed tomorrow by Dr. Gage. Further recommendations will be based on these findings and the patient's clinical course. DNP note has been reviewed, I agree with a documented findings and plan of care. Patient was seen and examined.
--- NOTE | 2016-09-21 19:50 | MR ---
EXAMINATION TYPE: MR MRA/MRV head wo con DATE OF EXAM: 09/21/2016 7:38 PM COMPARISON: NONE HISTORY: cva follow up Standard multiplanar, multisequence MRI departmental protocol MR angiographic images of the brain were obtained. MR venographic images of the brain were obtained. FINDINGS: There is arterial flow in the internal carotid arteries. There is arterial flow in the ante rior middle and posterior cerebral arteries. There is arterial flow in the vertebrobasilar artery sys tem. I see no definite flow in the posterior communicating arteries. There is no evidence of aneurysm or neovascularity. There is no mass effect. There is no evidence of hemodynamically significant sten osis. The MR venogram images show relative lack of venous signal pattern in the left side transverse sinus. This could be due to very slow flow or thrombosis. There is normal appearance of the superior sagitt al sinus and the right side transverse sinus and sigmoid sinus. Cerebral vein appears normal. IMPRESSION: Negative MR angiogram of the brain. No evidence of any significant occlusive disease. The venogram images show relative lack of venous flow in the left side transverse sinus. There is nor mal appearance of the transverse sinus on the CT scan of 09/19/2016. It is not clear if this is due to acute vein thrombosis. If there is persistent clinical indication contrast CT would be helpful for further evaluation.
[2016-09-21] MEDS: ATORVASTATIN 40 MG TAB PO SCH (21:33)
[2016-09-21] MEDS: ASCORBIC ACID 500 MG TAB PO SCH (21:34)
[2016-09-21] MEDS: CHOLECALCIFEROL 1,000 UNIT TAB PO SCH (21:35)
[2016-09-22 06:46] LABS: Anion Gap 9 mmol/L; Blood Urea Nitrogen 23 mg/dL (9-20); Calcium 9.3 mg/dL (8.4-10.2); Carbon Dioxide 24 mmol/L (22-30); Chloride 108 mmol/L (98-107); Glucose 89 mg/dL (74-99); Non-African American GFR(MDRD) >60 (>60 ml/min/1.73 sqM); Potassium 4.3 mmol/L (3.5-5.1); Sodium 141 mmol/L (137-145)
--- NOTE | 2016-09-22 07:43 | PN ---
DATE OF SERVICE: 09/21/2016 This 81-year-old gentleman was admitted with significant weakness of left side as well as having features of stroke. Seen and evaluated the patient along with the nurse practitioner. Please refer to the nurse practitioner notes and impression documented for further information. A 2-D echo with Doppler also noted and showed multiple mild valvular abnormalities and as well as echo free space was also noted. Cardiology is planning TIANNA. See orders for further details.
--- NOTE | 2016-09-22 07:56 | P.PN ---
Subjective Date of service 09/21/2016. Progress note being dictated for Dr. Howard. Interval history: This is an 81-year-old gentleman admitted with acute CVA slurring of speech and multiple other medical issues. Doing well, continues to improve. MRI reporting acute vascular insult- left mid leahy, age-related atrophy and chronic small vessel ischemic change. Echo suboptimal reporting echo free space possible pericardial fat pad, or effusion. Evaluated by cardiology, recommendations noted. TIANNA scheduled for a.m. Telemetry sinus bradycardia(50's)-sinus rhythm. Denies chest pain, palpitations or increasing shortness of breath. Denies lightheadedness dizziness or focal deficits. Denies nausea vomiting or diarrhea. Objective - Vital Signs Vital signs: Vital Signs Temp 96.7 F L 09/21/16 15:30 Pulse 71 09/21/16 15:30 Resp 18 09/21/16 15:30 BP 121/69 09/21/16 15:30 Pulse Ox 95 09/21/16 15:30 Intake & Output 09/20/16 09/21/16 09/21/16 18:59 06:59 18:59 Intake Total 1920 1600 320 Output Total 1050 300 Balance 870 1300 320 Weight 80.5 kg Intake: IV 1600 200 Sodium Chloride 0.9% 1, 1600 200 000 ml @ 100 mls/hr IV . Q10H [facility] Rx#:[id number] Intake, IV Titration 1200 Amount Sodium Chloride 0.9% 1, 1200 000 ml @ 100 mls/hr IV . Q10H [facility] Rx#:[id number] Oral 720 120 Output: Urine 1050 300 Other: Voiding Method Urinal Urinal # Voids 1 2 - Exam PHYSICAL EXAM: VITAL SIGNS: As above GENERAL: [Sitting up in bed, no acute distress] HEENT: [Pupils equal conjunctiva normal. Mucosa moist, right facial droop] NECK: [Supple, no JVD] RESPIRATORY EFFORT:[Normal] LUNGS: [Bilateral bases diminished, no wheezing rhonchi or crackles] CARDIOVASCULAR[regular S1-S2, occasional mild bradycardia, no murmurs rubs or gallops, no edema] GI: [Abdomen soft, nontender, positive bowel sounds.] PSYCH: [Alert and oriented -3, mood and affect normal.] NEURO: [Higher functions as previously mentioned, moves all 4 extremities, Right facial droop present, dysarthria present, improving-appropriate language, fluent, minimal upper limb weakness ,sensory grossly intact.] - Labs CBC & Chem 7: 09/19/16 12:30 09/22/16 06:05 Assessment and Plan Plan: 1. Acute CVA of the right. 2. Dysarthria. 3. 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 4. [CAD]. 5. [Hypertension]. 6. [Nephrolithiasis]. 7. [History of prostate surgery]. Plan: Continue on current medication regime , statin, anticoagulation, monitoring and symptomatic treatment. MRA ordered, pending. TIANNA in a.m. Follow closely with both Cardiology and neurology. Dysphasia diet with aspiration precautions. Prognosis guarded. Further recommendations to follow. The impression and plan of care has been dictated as directed. : I performed a H&P examination of this patient and discussed the same with the dictator. I agree with the dictator's note. Any additional findings/opinions/ etc. will be noted.
[2016-09-22] MEDS ORDERED: fentaNYL (PF) 50 MCG/ML 2 ML AMP ONE (08:05)
[2016-09-22] MEDS ORDERED: MIDAZOLAM 2 MG/2 ML VIAL ONE (08:05)
[2016-09-22] MEDS ORDERED: IV FLUID CONTINUATION 950 ML IV ONE (08:40)
[2016-09-22] MEDS: BENZOCAINE SPRAY 100 APPLIC/CAN MUCOUS MEM ONE ×2 (08:43→08:53)
[2016-09-22] MEDS ORDERED: BENZOCAINE SPRAY 100 APPLIC/CAN MUCOUS MEM ONE (08:43)
[2016-09-22] MEDS ORDERED: fentaNYL (PF) 50 MCG/ML 2 ML AMP IV ONE (08:58)
[2016-09-22] MEDS ORDERED: MIDAZOLAM 2 MG/2 ML VIAL IVP ONE (08:58)
[2016-09-22] MEDS ORDERED: SODIUM CHLORIDE 0.9% 1,000 ML IV SCH (09:15)
[2016-09-22] MEDS: ARTIFICIAL TEARS-HYPROMELLOSE DROPS 15 ML BTL BOTH EYES SCH (10:02)
[2016-09-22] MEDS: CLOPIDOGREL 75 MG TAB PO SCH (10:03)
[2016-09-22 11:01] VITALS: RESP 18
[2016-09-22 11:08] VITALS: BP 132/78; PULSE 57; TEMP 97.1
[2016-09-22 12:03] VITALS: BMI 21.8
--- NOTE | 2016-09-22 15:10 | P.PCN ---
Date of Procedure: 09/22/16 Preoperative Diagnosis: un explained CVA Procedure(s) Performed: No cardiac source of emboli documented on the study Description of Procedure: INDICATION : CVA CONSENT: Informed consent was obtained verbally from patient and family Conscious sedation: Patient was given conscious sedation with Versed and fentanyl. The duration is about 15 minutes PROCEDURE: Patient was brought to the lab in a fasting state. He was prepped and draped in the usual fashion. He was given IV Versed 1 mg and 25 mg of fentanyl. The the throat was sprayed with Hurricaine. A lubricated Omni probe was introduced in the oropharynx and was advanced into the esophagus. Multiple views were obtained. Patient tolerated the procedure well. Saline contrast bubble injections were performed. Color Doppler study was done. FINDINGS: The aortic well is mildly calcified with normal function and trace regurgitation. Mitral valve shows mild thickening with evidence of 1-2+ mitral regurgitation. The tricuspid valve showed mild regurgitation. The interatrial septum appeared to be intact without any spontaneous shunt. Contrast saline bubble injection did not reveal any evidence of PFO. Left atrial appendage appeared free of any clot. Left ankle function appear to be fair. The aorta showed evidence of mild to moderate plaque. IMPRESSION: #1. No clot in the left atrial appendage. #2. No evidence of PFO #3. Mild mitral regurgitation #4. Calcified aortic valve leaflets with trace regurgitation. #5. Moderate plaque in the aorta PLAN: Continue with antiplatelet agents and also lipid-lowering agents. Continue blood pressure control.
--- NOTE | 2016-09-23 14:30 | DS ---
DATE OF ADMISSION: 09/19/2016 DATE OF DISCHARGE: 09/22/2016 FINAL DIAGNOSES: 1. Acute cerebrovascular accident of the right side caused by one point of centered focus on the left mid leahy radiata combative with acute. 2. Dysarthria. 3. No aneurysm in the MRA. 4. History of coronary artery disease. 5. Hypertension. 6. History of nephrolithiasis. 7. History of prostate surgery. DISCHARGE DISPOSITION: The patient will be discharged in a stable condition with guarded prognosis. HISTORY OF PRESENT ILLNESS: This 81-year-old gentleman was admitted with features of acute CVA and right-sided weakness. Patient was treated symptomatically. MRI and MRA was done and other work-up including TIANNA was also done and carotid Doppler did not show any significant stenosis, showed mild plaques only. Otherwise, patient improved significantly. On exam, vitals are stable. CARDIOVASCULAR SYSTEM: S1, S2, muffled. ABDOMEN: Soft. NERVOUS SYSTEM: Limited weakness on the right face, the right upper limb has improved significantly. DISCHARGE ADVICE: 1. Diet is cardiac. 2. Activity limited until followup. 3. Follow up with primary physician as recommended. 4. Follow up with Dr. Mart in 2 weeks. Medications will be: 1. Homocysteine 2 tablets p.o. q.h.s. 2. Vitamin C 500 mg q.h.s. 3. Lipitor 40 mg p.o. q.h.s. 4. Refresh 1 drop both eyes. 5. Vitamin D3 five thousand p.o. daily. 6. Plavix 75 mg p.o. daily. 7. Krill oil 500 mg p.o. daily. 8. Ubidecarenone 300 mg q.48 hours. Once again, the patient will be discharged in a stable condition with guarded prognosis. [facility]
== END 2016-09-22 13:36 | disposition home or self-care (01) | DRG 66 ==
LOC: EC 12:01 → 6SEL 13:30
PROVIDERS: ADMIT Hospitalist; ATTEND Hospitalist
PROC: F07Z9ZZ Gait Training/Functional Ambulation Treatment (ICD-10-PCS; 2016-09-20)
PROC: B246ZZ4 Ultrasonography of Right and Left Heart, Transesophageal (ICD-10-PCS; principal; 2016-09-22 08:35)
DX: I63.9 Cerebral infarction, unspecified (principal); I67.1 Cerebral aneurysm, nonruptured; R00.1 Bradycardia, unspecified; I34.0 Nonrheumatic mitral (valve) insufficiency; I10 Essential (primary) hypertension; I45.10 Unspecified right bundle-branch block; E78.5 Hyperlipidemia, unspecified; I25.10 Atherosclerotic heart disease of native coronary artery without angina pectoris; N20.0 Calculus of kidney; H26.9 Unspecified cataract; R47.1 Dysarthria and anarthria; R29.810 Facial weakness; Z79.82 Long term (current) use of aspirin; Z79.899 Other long term (current) drug therapy; Z95.5 Presence of coronary angioplasty implant and graft; Z88.2 Allergy status to sulfonamides
CPT/HCPCS: 36415; 70450; 70496; 70498; 70544; 70551; 71020; 80048; 80053; 80061; 81003; 82550; 82553; 83090; 84484; 85025; 85610; 85730; 93005; 93306; 93312; 93320; 93325; 93880; 95819; 96360; 96361; 99285

== ENCOUNTER → 2016-11-30 | Outpatient (CLI) | payer MEDICARE ==
[2016-11-30 08:06] LABS: Cholesterol 185 mg/dL (<200); HDL Cholesterol 46 mg/dL (40-60); Triglycerides 97 mg/dL (<150)
== END | disposition home or self-care (01) ==
LOC: LABWHC1 07:11
PROVIDERS: ATTEND Psychiatry & Neurology Neurology
DX: I63.9 Cerebral infarction, unspecified (principal)
CPT/HCPCS: 36415; 80061

== ENCOUNTER → 2017-05-01 | Outpatient (CLI) | payer MEDICARE ==
[2017-05-01 07:54] LABS: Basophils # (A) 0.1 k/uL (0-0.2); Basophils % (A) 1 %; CH 29.1; CHCM 31.9; Eosinophils # (A) 0.2 k/uL (0-0.7); Eosinophils % (A) 2 %; HCT 45.8 % (39.0-53.0); HDW 2.46; HGB 14.3 gm/dL (13.0-17.5); Luc # (Auto) 0.17; Luc % (Auto) 2; Lymphocytes % (A) 22 %; MCH 28.7 pg (25.0-35.0); MCHC 31.3 g/dL (31.0-37.0); MCV 91.8 fL (80.0-100.0); Mean Platelet Volume 7.5; Monocytes # (A) 0.6 k/uL (0-1.0); Monocytes % (A) 7 %; Neutrophils # (A) 5.9 k/uL (1.3-7.7); Neutrophils % (A) 67 %; RBC 4.99 m/uL (4.30-5.90); RDW 14.3 % (11.5-15.5); WBC 8.9 k/uL (3.8-10.6); WBC (Perox) 8.92
[2017-05-01 08:08] LABS: Glucose 96 mg/dL (74-99); Total Protein 7.4 g/dL (6.3-8.2)
[2017-05-01 08:09] LABS: ALT 33 U/L (21-72); AST 24 U/L (17-59); Alkaline Phosphatase 86 U/L (38-126); Anion Gap 10 mmol/L; Blood Urea Nitrogen 24 mg/dL (9-20); Calcium 9.7 mg/dL (8.4-10.2); Carbon Dioxide 27 mmol/L (22-30); Chloride 106 mmol/L (98-107); Cholesterol 202 mg/dL (<200); HDL Cholesterol 44 mg/dL (40-60); Non-African American GFR(MDRD) 51 (>60 ml/min/1.73 sqM); Potassium 4.3 mmol/L (3.5-5.1); Sodium 143 mmol/L (137-145); Total Bilirubin 1.4 mg/dL (0.2-1.3)
== END | disposition home or self-care (01) ==
LOC: LABWHC1 06:58
PROVIDERS: ATTEND Internal Medicine Geriatric Medicine
DX: E78.00 Pure hypercholesterolemia, unspecified (principal); R73.9 Hyperglycemia, unspecified; N18.9 Chronic kidney disease, unspecified; D63.1 Anemia in chronic kidney disease
CPT/HCPCS: 36415; 80053; 80061; 83036; 84439; 84443; 85025

== ENCOUNTER → 2017-10-19 | Outpatient (CLI) | payer MEDICARE ==
--- NOTE | 2017-10-19 15:50 | XR ---
EXAMINATION TYPE: XR chest 2V DATE OF EXAM: 10/19/2017 COMPARISON: 09/19/2016 TECHNIQUE: PA and lateral views submitted. HISTORY: Weight loss FINDINGS: The lungs are clear and there is no pneumothorax, pleural effusion, or focal pneumonia. Hypertrophi c and degenerative change of the spine is noted. There is a vague nodular density along the right hem idiaphragm. Hyperinflation seen. Surgical clips in the abdomen. Arthropathy of the shoulders. IMPRESSION: 1. COPD with vague nodular density right hemidiaphragm recommend CT of the chest.
== END | disposition home or self-care (01) ==
LOC: RADXRMAIN 15:33
PROVIDERS: ATTEND Internal Medicine Geriatric Medicine
DX: J44.9 Chronic obstructive pulmonary disease, unspecified (principal); R91.8 Other nonspecific abnormal finding of lung field
CPT/HCPCS: 71046

== ENCOUNTER → 2017-11-05 | Outpatient (CLI) | payer MEDICARE ==
--- NOTE | 2017-11-05 11:22 | MR ---
EXAMINATION TYPE: MR angio head wo con DATE OF EXAM: 11/05/2017 COMPARISON: 09/21/2016 HISTORY: F/U, cerebral aneurysm TECHNIQUE: Time of flight images focusing on the [place] were performed without contrast. FINDINGS:3-D rotating images are reviewed. Source images are reviewed. Internal carotid arteries bifurcate normally into A1 and M1 segments. The anterior communicating art ver[place] is not identified. A small right posterior communicating artery is patent. Left posterior communi cating artery is not identified. Distal basilar artery and posterior cerebral arteries within the fie ld-of-view are normal. Middle cerebral artery branches appear unremarkable. A2 segments are normal. IMPRESSION: 1. No suspicious abnormality [place] of [place].
== END | disposition home or self-care (01) ==
LOC: RADMRIMAIN 07:57
PROVIDERS: ATTEND Internal Medicine Geriatric Medicine
DX: I67.1 Cerebral aneurysm, nonruptured (principal)
CPT/HCPCS: 70544

== ENCOUNTER 2017-11-07 12:42 | Observation (INO) | payer MEDICARE ==
[2017-11-07 10:21] LABS: Basophils % (A) 0 %; Eosinophils # (A) 0.1 k/uL (0-0.7); Eosinophils % (A) 0 %; HCT 40.2 % (39.0-53.0); HGB 13.4 gm/dL (13.0-17.5); Lymphocytes # (A) 1.3 k/uL (1.0-4.8); Lymphocytes % (A) 10 %; MCH 29.4 pg (25.0-35.0); MCHC 33.2 g/dL (31.0-37.0); MCV 88.4 fL (80.0-100.0); Mean Platelet Volume 7.3; Monocytes # (A) 0.9 k/uL (0-1.0); Monocytes % (A) 7 %; Neutrophils # (A) 10.3 k/uL (1.3-7.7); Neutrophils % (A) 81 %; Platelet Count 317 k/uL (150-450); RBC 4.55 m/uL (4.30-5.90); RDW 14.1 % (11.5-15.5); WBC 12.7 k/uL (3.8-10.6)
[2017-11-07 10:58] LABS: Albumin 3.8 g/dL (3.5-5.0); Calcium 10.7 mg/dL (8.4-10.2); Total Protein 7.5 g/dL (6.3-8.2)
[2017-11-07 11:00] LABS: Potassium 4.3 mmol/L (3.5-5.1)
--- NOTE | 2017-11-07 11:56 | FL ---
COMPARISON: NONE DATE OF EXAM: 11/07/2017 HISTORY: Dysphasia A number of thin and thick substances were ingested under the care of the department of speech pathol ogy. There is aspiration with thin barium, nectar and honey. No aspiration or penetration with puddi ng. IMPRESSION: 1. Aspiration as discussed above.
[2017-11-07 12:01] LABS: C Reactive Protein 36.7 mg/L (<10.0)
[2017-11-07 12:12] LABS: Erythrocyte Sedimentation Rate 85 mm/hr (0-15)
--- NOTE | 2017-11-07 12:51 | CT ---
EXAMINATION TYPE: CT ChestAbdPelvis w con DATE OF EXAM: 11/07/2017 COMPARISON: NONE HISTORY: Dysphagia, Cyst of spleen CT DLP: 1313 mGycm. Automated Exposure Control for Dose Reduction was Utilized. CONTRAST: CT scan of the thorax, abdomen and pelvis is performed with IV Contrast, patient injected with 80 mL of Isovue 300. FINDINGS: LUNGS: The lungs are grossly clear, there is no concerning parenchymal mass or nodule identified. P eripherally there are multiple areas of pleural-parenchymal scarring and right posterior laterally al suleiman the right lower lobe on series 4 image 45 there is focal pleural thickening measuring 3 mm. No pu lmonary masses or suspicious pulmonary nodules are seen. There is no pleural effusion or pneumothorax seen. The tracheobronchial tree is patent. MEDIASTINUM: There are no greater than 1 cm hilar or mediastinal lymph nodes. No pericardial effusi on is seen. Ascending thoracic aorta is upper limits of normal size measuring 4.0 cm. OTHER: There is a destructive soft tissue lesion emanating from the lateral margin of the right third rib measuring 2.3 x 2.6 cm (series 3 image 16) that is heterogenous in enhancement creating destruct ion of the osseous cortex and expansion of the anterolateral cortex on series 3 image 20. Nonspecific sclerotic focus is seen within the lateral margin of right rib 7 osseous destruction and expansion a re seen of the lateral margin of right rib 5. LIVER/GB: There are multiple hepatic lesions with peripheral enhancement most characteristic of multi focal metastasis with one of the largest in the right hepatic lobe on series 3 image 61 measuring 3.8 x 3.5 cm and another large lesion within the inferior right hepatic lobe on series 3 image 67 measur ing 3.1 x 4.8 cm. Altered areas of hepatic perfusion are also seen with wedge-shaped defects along th e subcapsular right hepatic lobe such as on series 3 image 57. Gallbladder is surgically absent. PANCREAS: Pancreatic parenchymal atrophy is seen. No ductal dilatation. SPLEEN: No significant abnormality is seen. ADRENALS: Indeterminant nodule of the inferior [place] of the left adrenal gland measures 1.0 cm on seri es 3 image 65. Right adrenal gland is unremarkable. KIDNEYS: The left kidney is enlarged, heterogenous, and overall decreased enhancement. There is a com plex cystic lesion containing coarse calcifications measuring up to 11.3 x 11.1 cm. Additionally ther e is suspicion for more ill-defined infiltrative lesion of the upper pole adjacent to this question t o measure at least 3.9 x 5.7 cm on series 3 image 74. Other smaller cystic appearing lesions are seen . There is asymmetric enhancement of the entirety of the left kidney and moderate left hydronephrosis . There is proximal obstruction of the left ureter by soft tissue density encasing and narrowing the left renal artery and appearing to invade the left renal vein. This measures at least 4.5 x 4.3 cm on series 3 image 70. Emanating from the right lower pole of the kidney there is ar 5.6 x 6.4 cm renal cyst. Renal sinus cy st is also seen BOWEL: There is retained colonic stool within the rectum measuring up to 7.4 x 8.3 cm. No proximal di latation to suggest obstruction. No small bowel dilatation.. GENITAL ORGANS: Penile prosthesis is incidentally noted. There is heterogeneity of the prostate gland . LYMPH NODES: Left periaortic lymph node encasing and narrowing the left renal artery are again demons trated. Possible necrotic adenopathy within the pelvis as described in the OTHER section. Otherwise n o abnormal adenopathy is seen within the abdomen or pelvis. OSSEOUS STRUCTURES: Destructive rib lesions as described above and multilevel moderate degenerative c hanges of the spine. OTHER: Cystic right pelvic sidewall mass measures 5.3 x 5.8 cm and could represent a urinary bladder diverticulum, however this appears to have mass effect upon the urinary bladder and could represent a cystic lesion such as pelvic inclusion cyst or enteric duplication cyst or less likely necrotic ana opathy. 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 The safest biopsy would likely be of the lateral destructive soft tissue mas s of the right third rib. A Yellow level critical message alert has been initiated for Sravan Monae MD via the [email or web address] Critical Results System on 11/07/2017 12:48 PM. This message alert has been sent to Sravan Monae MD via the preferences provided by the clinician for the receipt of Radiology Critical Findings. Message ID [id number].
[2017-11-07] MEDS ORDERED: SODIUM CHLORIDE 0.9% 500 ML IV STA (13:00)
[2017-11-07] MEDS ORDERED: SODIUM CHLORIDE 0.9% 1,000 ML IV STA (13:00)
--- NOTE | 2017-11-07 13:10 | ED ---
General Adult HPI - General Chief complaint: Recheck/Abnormal Lab/Rx Stated complaint: speech problems Time Seen by Provider: 11/07/17 12:45 Source: patient, family, RN notes reviewed, old records reviewed Mode of arrival: wheelchair Limitations: physical limitation - History of Present Illness Initial comments: This is a 82-year-old male who presents to the emergency department from the pathology department after apparently feeling a swallow test. Patient states she's been having difficulty swallowing and clearing secretions for the past 2 weeks. He is consequently had decreased oral intake he denies any fevers chills nausea vomiting sweats some generalized weakness however. Dr. Monae's office was contacted by the speech pathology department and the family was instructed to bring the patient here for evaluation. No fever or chills sweats he has had slight cough. No other symptoms reported at this time. He did have a swallow screen as well as a CAT scan done today. Results are pending - Related Data Previous Rx's Medication Instructions Recorded Clopidogrel [Plavix] 75 mg PO DAILY #30 tab 09/22/16 Allergies Allergy/AdvReac Type Severity Reaction Status Date / Time Sulfa (Sulfonamide Allergy Rash/Hives Verified 11/07/17 13:02 Antibiotics) Review of Systems ROS Statement: Those systems with pertinent positive or pertinent negative responses have been documented in the HPI. ROS Other: All systems not noted in ROS Statement are negative. Past Medical History Past Medical History: Coronary Artery Disease (CAD), Eye Disorder Additional Past Medical History / Comment(s): HX OF KIDNEY STONES, cataracts History of Any Multi-Drug Resistant Organisms: None Reported Past Surgical History: Heart Catheterization With Stent, Prostate Surgery Additional Past Surgical History / Comment(s): KIDNEY STONE SX, Past Anesthesia/Blood Transfusion Reactions: No Reported Reaction Date of Last Stent Placement:: 2006 Past Psychological History: No Psychological Hx Reported Smoking Status: Never smoker Past Alcohol Use History: None Reported Past Drug Use History: None Reported - Past Family History Mother Family Medical History: No Reported History Father History Unknown: Yes General Exam - General Exam Comments Initial Comments: This is a well-developed asthenic awake alert oriented times 3 male Limitations: physical limitation General appearance: alert, in no apparent distress Head exam: Present: atraumatic, normocephalic, normal inspection Eye exam: Present: normal appearance, PERRL, EOMI. Absent: scleral icterus, conjunctival injection, periorbital swelling ENT exam: Present: mucous membranes dry Neck exam: Present: normal inspection. Absent: tenderness, meningismus, lymphadenopathy Respiratory exam: Present: normal lung sounds bilaterally. Absent: respiratory distress, wheezes, rales, rhonchi, stridor Cardiovascular Exam: Present: regular rate, normal rhythm, normal heart sounds. Absent: systolic murmur, diastolic murmur, rubs, gallop, clicks GI/Abdominal exam: Present: soft, normal bowel sounds. Absent: distended, tenderness, guarding, rebound, rigid Extremities exam: Present: normal inspection, full ROM, normal capillary refill. Absent: tenderness, pedal edema, joint swelling, calf tenderness Back exam: Present: normal inspection Neurological exam: Present: alert, oriented X3, CN II-XII intact Psychiatric exam: Present: normal affect, normal mood Skin exam: Present: warm, dry, intact, normal color. Absent: rash Course Vital Signs 11/07/17 12:52 Temperature 97.0 F L Pulse Rate 73 Respiratory 18 Rate Blood Pressure 128/74 O2 Sat by Pulse 99 Oximetry Medical Decision Making - Medical Decision Making I did discuss case with Dr. Calvillo be admitted with consultation by Dr. Corrales and by Dr. Knott. CAT scan does show evidence of renal cell carcinoma with metastases. History of a swallow test aspiration is considered patient be place an IV fluids IV antibiotics with the above consultations. - Lab Data Result diagrams: 11/07/17 13:05 11/07/17 13:05 Lab Results 11/07/17 11/07/17 11/07/17 Range/Units 09:35 09:35 09:35 WBC 12.7 H (3.8-10.6) k/uL RBC 4.55 (4.30-5.90) m/uL Hgb 13.4 (13.0-17.5) gm/dL Hct 40.2 (39.0-53.0) % MCV 88.4 (80.0-100.0) fL MCH 29.4 (25.0-35.0) pg MCHC 33.2 (31.0-37.0) g/dL RDW 14.1 (11.5-15.5) % Plt Count 317 (150-450) k/uL Neutrophils % 81 % Lymphocytes % 10 % Monocytes % 7 % Eosinophils % 0 % Basophils % 0 % Neutrophils # 10.3 H (1.3-7.7) k/uL Lymphocytes # 1.3 (1.0-4.8) k/uL Monocytes # 0.9 (0-1.0) k/uL Eosinophils # 0.1 (0-0.7) k/uL Basophils # 0.0 (0-0.2) k/uL ESR 85 H (0-15) mm/hr Sodium 144 (137-145) mmol/L Potassium 4.3 (3.5-5.1) mmol/L Chloride 103 (98-107) mmol/L Carbon Dioxide 27 (22-30) mmol/L Anion Gap 14 mmol/L BUN 38 H (9-20) mg/dL Creatinine 1.24 (0.66-1.25) mg/dL Est GFR (CKD-EPI)AfAm 62 (>60 ml/min/1.73 sqM) Est GFR (CKD-EPI)NonAf 54 (>60 ml/min/1.73 sqM) Glucose 105 H (74-99) mg/dL Calcium 10.7 H (8.4-10.2) mg/dL Magnesium (1.6-2.3) mg/dL Total Bilirubin 1.0 (0.2-1.3) mg/dL AST 53 (17-59) U/L ALT 49 (21-72) U/L Alkaline Phosphatase 204 H (38-126) U/L Total Creatine Kinase (55-170) U/L C-Reactive Protein 36.7 H (<10.0) mg/L Total Protein 7.5 (6.3-8.2) g/dL Albumin 3.8 (3.5-5.0) g/dL Triglycerides 85 (<150) mg/dL Cholesterol 148 (<200) mg/dL LDL Cholesterol, Calc 85 (0-99) mg/dL HDL Cholesterol 46 (40-60) mg/dL TSH 5.250 H (0.465-4.680) mIU/L Urine Color Urine Appearance (Clear) Urine pH (5.0-8.0) Ur Specific [place] (1.001-1.035) Urine Protein (Negative) Urine Glucose (UA) (Negative) Urine Ketones (Negative) Urine Blood (Negative) Urine Nitrite (Negative) Urine Bilirubin (Negative) Urine Urobilinogen (<2.0) mg/dL Ur Leukocyte Esterase (Negative) 11/07/17 11/07/17 11/07/17 Range/Units 13:05 13:05 13:05 WBC 11.7 H (3.8-10.6) k/uL RBC 4.36 (4.30-5.90) m/uL Hgb 12.6 L (13.0-17.5) gm/dL Hct 37.9 L (39.0-53.0) % MCV 87.0 (80.0-100.0) fL MCH 29.0 (25.0-35.0) pg MCHC 33.3 (31.0-37.0) g/dL RDW 14.0 (11.5-15.5) % Plt Count 279 (150-450) k/uL Neutrophils % 79 % Lymphocytes % 12 % Monocytes % 7 % Eosinophils % 0 % Basophils % 0 % Neutrophils # 9.2 H (1.3-7.7) k/uL Lymphocytes # 1.4 (1.0-4.8) k/uL Monocytes # 0.8 (0-1.0) k/uL Eosinophils # 0.0 (0-0.7) k/uL Basophils # 0.0 (0-0.2) k/uL ESR (0-15) mm/hr Sodium 139 (137-145) mmol/L Potassium 5.2 H (3.5-5.1) mmol/L Chloride 101 (98-107) mmol/L Carbon Dioxide 27 (22-30) mmol/L Anion Gap 11 mmol/L BUN 37 H (9-20) mg/dL Creatinine 1.26 H (0.66-1.25) mg/dL Est GFR (CKD-EPI)AfAm 61 (>60 ml/min/1.73 sqM) Est GFR (CKD-EPI)NonAf 52 (>60 ml/min/1.73 sqM) Glucose 116 H (74-99) mg/dL Calcium 10.7 H (8.4-10.2) mg/dL Magnesium 2.2 (1.6-2.3) mg/dL Total Bilirubin 0.9 (0.2-1.3) mg/dL AST 46 (17-59) U/L ALT 52 (21-72) U/L Alkaline Phosphatase 201 H (38-126) U/L Total Creatine Kinase <20 L (55-170) U/L C-Reactive Protein (<10.0) mg/L Total Protein 6.5 (6.3-8.2) g/dL Albumin 3.3 L (3.5-5.0) g/dL Triglycerides (<150) mg/dL Cholesterol (<200) mg/dL LDL Cholesterol, Calc (0-99) mg/dL HDL Cholesterol (40-60) mg/dL TSH (0.465-4.680) mIU/L Urine Color Urine Appearance (Clear) Urine pH (5.0-8.0) Ur Specific [place] (1.001-1.035) Urine Protein (Negative) Urine Glucose (UA) (Negative) Urine Ketones (Negative) Urine Blood (Negative) Urine Nitrite (Negative) Urine Bilirubin (Negative) Urine Urobilinogen (<2.0) mg/dL Ur Leukocyte Esterase (Negative) 11/07/17 Range/Units 13:05 WBC (3.8-10.6) k/uL RBC (4.30-5.90) m/uL Hgb (13.0-17.5) gm/dL Hct (39.0-53.0) % MCV (80.0-100.0) fL MCH (25.0-35.0) pg MCHC (31.0-37.0) g/dL RDW (11.5-15.5) % Plt Count (150-450) k/uL Neutrophils % % Lymphocytes % % Monocytes % % Eosinophils % % Basophils % % Neutrophils # (1.3-7.7) k/uL Lymphocytes # (1.0-4.8) k/uL Monocytes # (0-1.0) k/uL Eosinophils # (0-0.7) k/uL Basophils # (0-0.2) k/uL ESR (0-15) mm/hr Sodium (137-145) mmol/L Potassium (3.5-5.1) mmol/L Chloride (98-107) mmol/L Carbon Dioxide (22-30) mmol/L Anion Gap mmol/L BUN (9-20) mg/dL Creatinine (0.66-1.25) mg/dL Est GFR (CKD-EPI)AfAm (>60 ml/min/1.73 sqM) Est GFR (CKD-EPI)NonAf (>60 ml/min/1.73 sqM) Glucose (74-99) mg/dL Calcium (8.4-10.2) mg/dL Magnesium (1.6-2.3) mg/dL Total Bilirubin (0.2-1.3) mg/dL AST (17-59) U/L ALT (21-72) U/L Alkaline Phosphatase (38-126) U/L Total Creatine Kinase (55-170) U/L C-Reactive Protein (<10.0) mg/L Total Protein (6.3-8.2) g/dL Albumin (3.5-5.0) g/dL Triglycerides (<150) mg/dL Cholesterol (<200) mg/dL LDL Cholesterol, Calc (0-99) mg/dL HDL Cholesterol (40-60) mg/dL TSH (0.465-4.680) mIU/L Urine Color Yellow Urine Appearance Clear (Clear) Urine pH 6.5 (5.0-8.0) Ur Specific [place] 1.044 H (1.001-1.035) Urine Protein Negative (Negative) Urine Glucose (UA) Negative (Negative) Urine Ketones Trace H (Negative) Urine Blood Negative (Negative) Urine Nitrite Negative (Negative) Urine Bilirubin Negative (Negative) Urine Urobilinogen <2.0 (<2.0) mg/dL Ur Leukocyte Esterase Negative (Negative) - Radiology Data Radiology results: report reviewed (I did review the imaging that was done earlier. There is evidence of aspiration on the swallow study CAT scan does show evidence of destructive soft tissue lesion emanating from the lateral margin of the right third rib also evidence of multiple hepatic lesions), image reviewed (Continuation note there is evidence of a lesion the left kidney consistent with renal cell carcinoma with some invasion into the left renal vein.) Disposition Clinical Impression: Aspiration into airway, Renal cell cancer, Dehydration, Failure to thrive Disposition: ADMITTED IP TO THIS [facility] Condition: Stable Referrals: Sravan Monae MD [Primary Care Provider] - 1-2 days
[2017-11-07 14:00] LABS: Appearance,Urine Clear (Clear); Bilirubin,Urine Negative (Negative); Blood,Urine Negative (Negative); Color,Urine Yellow; Glucose,Urine (UA) Negative (Negative); Ketones,Urine Trace (Negative); Leukocyte Esterase,Urine Negative (Negative); Nitrite,Urine Negative (Negative); PH, Urine 6.5 (5.0-8.0); Protein,Urine Negative (Negative); Specific Gravity,Urine 1.044 (1.001-1.035); Urobilinogen,Urine <2.0 mg/dL (<2.0)
[2017-11-07 14:01] LABS: Basophils % (A) 0 %; Eosinophils % (A) 0 %; HCT 37.9 % (39.0-53.0); HGB 12.6 gm/dL (13.0-17.5); Lymphocytes # (A) 1.4 k/uL (1.0-4.8); Lymphocytes % (A) 12 %; MCHC 33.3 g/dL (31.0-37.0); Mean Platelet Volume 7.5; Monocytes # (A) 0.8 k/uL (0-1.0); Monocytes % (A) 7 %; Neutrophils # (A) 9.2 k/uL (1.3-7.7); Neutrophils % (A) 79 %; Platelet Count 279 k/uL (150-450); RBC 4.36 m/uL (4.30-5.90); WBC 11.7 k/uL (3.8-10.6)
[2017-11-07 14:14] LABS: Albumin 3.3 g/dL (3.5-5.0); Calcium 10.7 mg/dL (8.4-10.2); Magnesium 2.2 mg/dL (1.6-2.3); Potassium 5.2 mmol/L (3.5-5.1); Total Bilirubin 0.9 mg/dL (0.2-1.3); Total Protein 6.5 g/dL (6.3-8.2)
[2017-11-07 14:31] LABS: Creatine Kinase <20 U/L (55-170)
[2017-11-07 14:44] LABS: Creatine Kinase MB 0.4 ng/mL (0.0-2.4); Troponin I <0.012 ng/mL (0.000-0.034)
[2017-11-07] MEDS ORDERED: NALOXONE 0.4 MG/ML 1 ML VIAL IV PRN (14:52)
--- NOTE | 2017-11-07 16:20 | P.GSCN ---
History of Present Illness Consult date: 11/07/17 History of present illness: Aspiration, metastatic cancer Past Medical History Past Medical History: Coronary Artery Disease (CAD), Eye Disorder Additional Past Medical History / Comment(s): HX OF KIDNEY STONES, cataracts History of Any Multi-Drug Resistant Organisms: None Reported Past Surgical History: Heart Catheterization With Stent, Prostate Surgery Additional Past Surgical History / Comment(s): KIDNEY STONE SX, Past Anesthesia/Blood Transfusion Reactions: No Reported Reaction Date of Last Stent Placement:: 2006 Past Psychological History: No Psychological Hx Reported Smoking Status: Never smoker Past Alcohol Use History: None Reported Past Drug Use History: None Reported - Past Family History Mother Family Medical History: No Reported History Father History Unknown: Yes Medications and Allergies Home Medications Medication Instructions Recorded Confirmed Type Clopidogrel [Plavix] 75 mg PO DAILY #30 tab 09/22/16 11/07/17 Rx Allergies Allergy/AdvReac Type Severity Reaction Status Date / Time Sulfa (Sulfonamide Allergy Rash/Hives Verified 11/07/17 13:02 Antibiotics) Surgical - Exam Osteopathic Statement: *. No significant issues noted on an osteopathic structural exam other than those noted in the History and Physical/Consult. Vital Signs Temp Pulse Resp BP Pulse Ox 97.0 F L 73 18 128/74 99 11/07/17 12:52 11/07/17 12:52 11/07/17 12:52 11/07/17 12:52 11/07/17 12:52 Results - Labs 11/07/17 13:05 11/07/17 13:05 Abnormal Lab Results - Last 24 Hours (Table) 11/07/17 11/07/17 11/07/17 Range/Units 09:35 09:35 09:35 WBC 12.7 H (3.8-10.6) k/uL Hgb (13.0-17.5) gm/dL Hct (39.0-53.0) % Neutrophils # 10.3 H (1.3-7.7) k/uL ESR 85 H (0-15) mm/hr Potassium (3.5-5.1) mmol/L BUN 38 H (9-20) mg/dL Creatinine (0.66-1.25) mg/dL Glucose 105 H (74-99) mg/dL Calcium 10.7 H (8.4-10.2) mg/dL Alkaline Phosphatase 204 H (38-126) U/L Total Creatine Kinase (55-170) U/L C-Reactive Protein 36.7 H (<10.0) mg/L Albumin (3.5-5.0) g/dL TSH 5.250 H (0.465-4.680) mIU/L Ur Specific [place] (1.001-1.035) Urine Ketones (Negative) 11/07/17 11/07/17 11/07/17 Range/Units 13:05 13:05 13:05 WBC 11.7 H (3.8-10.6) k/uL Hgb 12.6 L (13.0-17.5) gm/dL Hct 37.9 L (39.0-53.0) % Neutrophils # 9.2 H (1.3-7.7) k/uL ESR (0-15) mm/hr Potassium 5.2 H (3.5-5.1) mmol/L BUN 37 H (9-20) mg/dL Creatinine 1.26 H (0.66-1.25) mg/dL Glucose 116 H (74-99) mg/dL Calcium 10.7 H (8.4-10.2) mg/dL Alkaline Phosphatase 201 H (38-126) U/L Total Creatine Kinase <20 L (55-170) U/L C-Reactive Protein (<10.0) mg/L Albumin 3.3 L (3.5-5.0) g/dL TSH (0.465-4.680) mIU/L Ur Specific [place] (1.001-1.035) Urine Ketones (Negative) 11/07/17 Range/Units 13:05 WBC (3.8-10.6) k/uL Hgb (13.0-17.5) gm/dL Hct (39.0-53.0) % Neutrophils # (1.3-7.7) k/uL ESR (0-15) mm/hr Potassium (3.5-5.1) mmol/L BUN (9-20) mg/dL Creatinine (0.66-1.25) mg/dL Glucose (74-99) mg/dL Calcium (8.4-10.2) mg/dL Alkaline Phosphatase (38-126) U/L Total Creatine Kinase (55-170) U/L C-Reactive Protein (<10.0) mg/L Albumin (3.5-5.0) g/dL TSH (0.465-4.680) mIU/L Ur Specific [place] 1.044 H (1.001-1.035) Urine Ketones Trace H (Negative) Diabetes panel 11/07/17 11/07/17 11/07/17 Range/Units 09:35 09:35 13:05 Sodium 144 139 (137-145) mmol/L Potassium 4.3 5.2 H (3.5-5.1) mmol/L Chloride 103 101 (98-107) mmol/L Carbon Dioxide 27 27 (22-30) mmol/L BUN 38 H 37 H (9-20) mg/dL Creatinine 1.24 1.26 H (0.66-1.25) mg/dL Glucose 105 H 116 H (74-99) mg/dL Calcium 10.7 H 10.7 H (8.4-10.2) mg/dL AST 53 46 (17-59) U/L ALT 49 52 (21-72) U/L Alkaline Phosphatase 204 H 201 H (38-126) U/L Total Protein 7.5 6.5 (6.3-8.2) g/dL Albumin 3.8 3.3 L (3.5-5.0) g/dL Triglycerides 85 (<150) mg/dL HDL Cholesterol 46 (40-60) mg/dL Thyroid panel 11/07/17 Range/Units 09:35 TSH 5.250 H (0.465-4.680) mIU/L Calcium panel 11/07/17 11/07/17 Range/Units 09:35 13:05 Calcium 10.7 H 10.7 H (8.4-10.2) mg/dL Albumin 3.8 3.3 L (3.5-5.0) g/dL Pituitary panel 11/07/17 11/07/17 11/07/17 Range/Units 09:35 09:35 13:05 Sodium 144 139 (137-145) mmol/L Potassium 4.3 5.2 H (3.5-5.1) mmol/L Chloride 103 101 (98-107) mmol/L Carbon Dioxide 27 27 (22-30) mmol/L BUN 38 H 37 H (9-20) mg/dL Creatinine 1.24 1.26 H (0.66-1.25) mg/dL Glucose 105 H 116 H (74-99) mg/dL Calcium 10.7 H 10.7 H (8.4-10.2) mg/dL TSH 5.250 H (0.465-4.680) mIU/L Adrenal panel 11/07/17 11/07/17 Range/Units 09:35 13:05 Sodium 144 139 (137-145) mmol/L Potassium 4.3 5.2 H (3.5-5.1) mmol/L Chloride 103 101 (98-107) mmol/L Carbon Dioxide 27 27 (22-30) mmol/L BUN 38 H 37 H (9-20) mg/dL Creatinine 1.24 1.26 H (0.66-1.25) mg/dL Glucose 105 H 116 H (74-99) mg/dL Calcium 10.7 H 10.7 H (8.4-10.2) mg/dL Total Bilirubin 1.0 0.9 (0.2-1.3) mg/dL AST 53 46 (17-59) U/L ALT 49 52 (21-72) U/L Alkaline Phosphatase 204 H 201 H (38-126) U/L Total Protein 7.5 6.5 (6.3-8.2) g/dL Albumin 3.8 3.3 L (3.5-5.0) g/dL Assessment and Plan (1) Aspiration into airway Current Visit: Yes Status: Acute Code(s): T17.908A - UNSP FB IN RESP TRACT, PART UNSP CAUSING OTH INJURY, INIT SNOMED Code(s): 554404976 (2) Renal cell cancer Current Visit: Yes Status: Acute Code(s): C64.9 - MALIGNANT NEOPLASM OF UNSP KIDNEY, EXCEPT RENAL PELVIS SNOMED Code(s): 782795518 (3) Cerebrovascular accident Current Visit: No Status: Acute Code(s): I63.9 - CEREBRAL INFARCTION, UNSPECIFIED SNOMED Code(s): 247873472 Plan: The consult is in progress. I reviewed the chart via computer. His last dose of Plavix was taken yesterday. Therefore we will need to wait until Sunday to do the PEG tube. He'll be seen tomorrow for a full consult.
[2017-11-07 17:35] LABS: Hemoglobin A1C 5.7 % (4.0-6.0)
[2017-11-07] MEDS: SODIUM CHLORIDE 0.9% 1,000 ML IV SCH (17:47)
[2017-11-08] MEDS: SODIUM CHLORIDE 0.9% 1,000 ML IV SCH ×3 (00:39→19:36)
[2017-11-08 06:21] VITALS: TEMP 97.4
--- NOTE | 2017-11-08 09:59 | P.GSCN ---
History of Present Illness Consult date: 11/08/17 Reason for Consult: PEG Tube placement History of present illness: The patient's a 82-year-old man who underwent a speech/swallow study showing aspiration. He gives a history of a CVA about 1 year ago. He's had some difficulty swallowing since then but has not told anybody. He's had about 60 pound weight loss since then. The swallowing difficulties have been worse the last couple of weeks. He also had a CT scan performed suggestive of a metastatic cancer of possible renal origin. He said he had "all kinds of tests "done a year ago and no signs of cancer showed up at that time. No history of ulcer disease. He's had to open cholecystectomy. No other abdominal surgery Review of Systems All systems: negative Past Medical History Past Medical History: Coronary Artery Disease (CAD), Eye Disorder Additional Past Medical History / Comment(s): HX OF KIDNEY STONES, cataracts History of Any Multi-Drug Resistant Organisms: None Reported Past Surgical History: Cholecystectomy, Heart Catheterization With Stent, Prostate Surgery Additional Past Surgical History / Comment(s): KIDNEY STONE SX, Past Anesthesia/Blood Transfusion Reactions: No Reported Reaction Date of Last Stent Placement:: 2006 Smoking Status: Never smoker - Past Family History Mother Family Medical History: No Reported History Father History Unknown: Yes Medications and Allergies Home Medications Medication Instructions Recorded Confirmed Type Clopidogrel [Plavix] 75 mg PO DAILY #30 tab 09/22/16 11/07/17 Rx Allergies Allergy/AdvReac Type Severity Reaction Status Date / Time Sulfa (Sulfonamide Allergy Rash/Hives Verified 11/07/17 13:02 Antibiotics) Surgical - Exam Osteopathic Statement: *. No significant issues noted on an osteopathic structural exam other than those noted in the History and Physical/Consult. Vital Signs Temp Pulse Resp BP Pulse Ox 97.0 F L 73 18 128/74 99 11/07/17 12:52 11/07/17 12:52 11/07/17 12:52 11/07/17 12:52 11/07/17 12:52 - General cachectic, chronically ill - Eyes normal ocular movement - Neck trachea midline, no lymphadectomy, no venous distension - Respiratory normal respiratory effort, clear to auscultation - Cardiovascular Rhythm: regular - Abdomen Abdomen is scaphoid, some swelling of the left abdomen Abdomen: soft, non tender, bowel sounds Results - Labs 11/07/17 13:05 11/07/17 13:05 Abnormal Lab Results - Last 24 Hours (Table) 11/07/17 11/07/17 11/07/17 Range/Units 09:35 09:35 09:35 WBC 12.7 H (3.8-10.6) k/uL Hgb (13.0-17.5) gm/dL Hct (39.0-53.0) % Neutrophils # 10.3 H (1.3-7.7) k/uL ESR 85 H (0-15) mm/hr Potassium (3.5-5.1) mmol/L BUN 38 H (9-20) mg/dL Creatinine (0.66-1.25) mg/dL Glucose 105 H (74-99) mg/dL Calcium 10.7 H (8.4-10.2) mg/dL Alkaline Phosphatase 204 H (38-126) U/L Total Creatine Kinase (55-170) U/L C-Reactive Protein 36.7 H (<10.0) mg/L Albumin (3.5-5.0) g/dL TSH 5.250 H (0.465-4.680) mIU/L Ur Specific [place] (1.001-1.035) Urine Ketones (Negative) 11/07/17 11/07/17 11/07/17 Range/Units 13:05 13:05 13:05 WBC 11.7 H (3.8-10.6) k/uL Hgb 12.6 L (13.0-17.5) gm/dL Hct 37.9 L (39.0-53.0) % Neutrophils # 9.2 H (1.3-7.7) k/uL ESR (0-15) mm/hr Potassium 5.2 H (3.5-5.1) mmol/L BUN 37 H (9-20) mg/dL Creatinine 1.26 H (0.66-1.25) mg/dL Glucose 116 H (74-99) mg/dL Calcium 10.7 H (8.4-10.2) mg/dL Alkaline Phosphatase 201 H (38-126) U/L Total Creatine Kinase <20 L (55-170) U/L C-Reactive Protein (<10.0) mg/L Albumin 3.3 L (3.5-5.0) g/dL TSH (0.465-4.680) mIU/L Ur Specific [place] (1.001-1.035) Urine Ketones (Negative) 11/07/17 Range/Units 13:05 WBC (3.8-10.6) k/uL Hgb (13.0-17.5) gm/dL Hct (39.0-53.0) % Neutrophils # (1.3-7.7) k/uL ESR (0-15) mm/hr Potassium (3.5-5.1) mmol/L BUN (9-20) mg/dL Creatinine (0.66-1.25) mg/dL Glucose (74-99) mg/dL Calcium (8.4-10.2) mg/dL Alkaline Phosphatase (38-126) U/L Total Creatine Kinase (55-170) U/L C-Reactive Protein (<10.0) mg/L Albumin (3.5-5.0) g/dL TSH (0.465-4.680) mIU/L Ur Specific [place] 1.044 H (1.001-1.035) Urine Ketones Trace H (Negative) Diabetes panel 11/07/17 11/07/17 11/07/17 Range/Units 09:35 09:35 09:35 Sodium 144 (137-145) mmol/L Potassium 4.3 (3.5-5.1) mmol/L Chloride 103 (98-107) mmol/L Carbon Dioxide 27 (22-30) mmol/L BUN 38 H (9-20) mg/dL Creatinine 1.24 (0.66-1.25) mg/dL Glucose 105 H (74-99) mg/dL Hemoglobin A1c 5.7 (4.0-6.0) % Calcium 10.7 H (8.4-10.2) mg/dL AST 53 (17-59) U/L ALT 49 (21-72) U/L Alkaline Phosphatase 204 H (38-126) U/L Total Protein 7.5 (6.3-8.2) g/dL Albumin 3.8 (3.5-5.0) g/dL Triglycerides 85 (<150) mg/dL HDL Cholesterol 46 (40-60) mg/dL 11/07/17 Range/Units 13:05 Sodium 139 (137-145) mmol/L Potassium 5.2 H (3.5-5.1) mmol/L Chloride 101 (98-107) mmol/L Carbon Dioxide 27 (22-30) mmol/L BUN 37 H (9-20) mg/dL Creatinine 1.26 H (0.66-1.25) mg/dL Glucose 116 H (74-99) mg/dL Hemoglobin A1c (4.0-6.0) % Calcium 10.7 H (8.4-10.2) mg/dL AST 46 (17-59) U/L ALT 52 (21-72) U/L Alkaline Phosphatase 201 H (38-126) U/L Total Protein 6.5 (6.3-8.2) g/dL Albumin 3.3 L (3.5-5.0) g/dL Triglycerides (<150) mg/dL HDL Cholesterol (40-60) mg/dL Thyroid panel 11/07/17 Range/Units 09:35 TSH 5.250 H (0.465-4.680) mIU/L Calcium panel 11/07/17 11/07/17 Range/Units 09:35 13:05 Calcium 10.7 H 10.7 H (8.4-10.2) mg/dL Albumin 3.8 3.3 L (3.5-5.0) g/dL Pituitary panel 11/07/17 11/07/17 11/07/17 Range/Units 09:35 09:35 13:05 Sodium 144 139 (137-145) mmol/L Potassium 4.3 5.2 H (3.5-5.1) mmol/L Chloride 103 101 (98-107) mmol/L Carbon Dioxide 27 27 (22-30) mmol/L BUN 38 H 37 H (9-20) mg/dL Creatinine 1.24 1.26 H (0.66-1.25) mg/dL Glucose 105 H 116 H (74-99) mg/dL Calcium 10.7 H 10.7 H (8.4-10.2) mg/dL TSH 5.250 H (0.465-4.680) mIU/L Adrenal panel 11/07/17 11/07/17 Range/Units 09:35 13:05 Sodium 144 139 (137-145) mmol/L Potassium 4.3 5.2 H (3.5-5.1) mmol/L Chloride 103 101 (98-107) mmol/L Carbon Dioxide 27 27 (22-30) mmol/L BUN 38 H 37 H (9-20) mg/dL Creatinine 1.24 1.26 H (0.66-1.25) mg/dL Glucose 105 H 116 H (74-99) mg/dL Calcium 10.7 H 10.7 H (8.4-10.2) mg/dL Total Bilirubin 1.0 0.9 (0.2-1.3) mg/dL AST 53 46 (17-59) U/L ALT 49 52 (21-72) U/L Alkaline Phosphatase 204 H 201 H (38-126) U/L Total Protein 7.5 6.5 (6.3-8.2) g/dL Albumin 3.8 3.3 L (3.5-5.0) g/dL - Imaging CT scan - abdomen: report reviewed, image reviewed Assessment and Plan (1) Aspiration into airway Current Visit: Yes Status: Acute Code(s): T17.908A - UNSP FB IN RESP TRACT, PART UNSP CAUSING OTH INJURY, INIT SNOMED Code(s): 020216400 (2) Renal cell cancer Current Visit: Yes Status: Acute Code(s): C64.9 - MALIGNANT NEOPLASM OF UNSP KIDNEY, EXCEPT RENAL PELVIS SNOMED Code(s): 297569515 (3) Cerebrovascular accident Current Visit: No Status: Acute Code(s): I63.9 - CEREBRAL INFARCTION, UNSPECIFIED SNOMED Code(s): 905323937 Plan: The Plavix has been held. Tomorrow we'll plan on placing a PEG tube. The procedure risks and complications were discussed with he and his . Questions were encouraged and answered. I had spoken with Dr. Knott. He said if there is anything suspicious in the esophagus that could indicate metastatic disease that it please be biopsied. Further recommendations to follow
[2017-11-08 11:06] VITALS: BMI 16.9
--- NOTE | 2017-11-08 11:59 | P.CONS ---
History of Present Illness - Reason for Consult Consult date: 11/08/[address] scan Requesting physician: Tl Brown - Chief Complaint difficulty swallowing, anorexia - History of Present Illness Mr. Pierson is a very pleasant 82-year-old male with history of coronary artery disease and stroke who has had progressive failure to thrive over the last 6 months, 30 pound weight loss, poor oral intake is related to difficulty swallowing, "food doesn't make it down", more recently losing sleep as he cannot manage his secretions, progressive last few months but present 1 year, starting after his stroke in September 2016. Patient denied fevers, night sweats, frequent illnesses, nausea or vomiting, abdominal pain or bloating, acute changes in bowel or bladder habits, he is having right shoulder, arm and chest wall pain, acute, moderate, not constant, improves with positioning, no associated symptoms, denies injury. he has progressive weakness, activity levels are low, denies dyspnea, chest pains or activity intolerance. He has no other pain than what was previously described. Review of Systems 14 point review of systems is as stated in HPI Past Medical History Past Medical History: Coronary Artery Disease (CAD), Eye Disorder Additional Past Medical History / Comment(s): HX OF KIDNEY STONES, cataracts History of Any Multi-Drug Resistant Organisms: None Reported Past Surgical History: Cholecystectomy, Heart Catheterization With Stent, Prostate Surgery Additional Past Surgical History / Comment(s): KIDNEY STONE SX, Past Anesthesia/Blood Transfusion Reactions: No Reported Reaction Date of Last Stent Placement:: 2006 Past Psychological History: No Psychological Hx Reported Smoking Status: Never smoker - Past Family History Mother Family Medical History: No Reported History Father History Unknown: Yes Medications and Allergies Home Medications Medication Instructions Recorded Confirmed Type Clopidogrel [Plavix] 75 mg PO DAILY #30 tab 09/22/16 11/07/17 Rx Allergies Allergy/AdvReac Type Severity Reaction Status Date / Time Sulfa (Sulfonamide Allergy Rash/Hives Verified 11/07/17 13:02 Antibiotics) Physical Exam Vitals: Vital Signs Temp Pulse Pulse Pulse Resp BP BP 11/08/17 06:20 97.4 F L 72 17 119/72 11/07/17 23:00 98.0 F 78 16 124/68 11/07/17 16:05 16 11/07/17 15:18 97.5 F L 71 18 131/74 11/07/17 12:52 97.0 F L 73 18 128/74 Pulse Ox 11/08/17 06:20 97 11/07/17 23:00 97 11/07/17 16:05 11/07/17 15:18 95 11/07/17 12:52 99 Intake and Output 11/07/17 11/08/17 11/08/17 22:59 06:59 14:59 Intake Total 1000 1000 Balance 1000 1000 Intake: Intake, IV Titration 1000 1000 Amount Sodium Chloride 0.9% 1, 1000 1000 000 ml @ 125 mls/hr IV . Q8H [facility] Rx#:[id number] Other: Voiding Method Diaper Diaper Diaper Incontinent Incontinent Incontinent # Voids 2 2 Weight 61.235 kg - Constitutional General appearance: cooperative, no acute distress, thin - EENT Eyes: anicteric sclerae, EOMI, normal appearance ENT: hearing grossly normal, normal oropharynx - Neck Neck: no lymphadenopathy - Respiratory Respiratory: bilateral: CTA - Cardiovascular Heart sounds: normal: S1, S2 leg Peripheral Edema: bilateral: None - Gastrointestinal orange sized, hard, fixed, painless mass in the left middle quadrant area General gastrointestinal: no absent bowel sounds, no decreased bowel sounds, no distended, no hepatomegaly, no hyperactive bowel sounds, normal bowel sounds, no organomegaly, no rigid, scaphoid, soft, no splenomegaly, no tenderness, no umbilical hernia, no ventral hernia - Integumentary Integumentary: pale - Neurologic Neurologic: CNII-XII intact - Musculoskeletal Musculoskeletal: generalized weakness - Psychiatric Psychiatric: A&O x's 3, appropriate affect, intact judgment & insight Results CBC & Chem 7: 11/07/17 13:05 11/07/17 13:05 Labs: Abnormal Lab Results - Last 24 Hours (Table) 11/07/17 11/07/17 11/07/17 Range/Units 09:35 09:35 13:05 WBC (3.8-10.6) k/uL Hgb (13.0-17.5) gm/dL Hct (39.0-53.0) % Neutrophils # (1.3-7.7) k/uL ESR 85 H (0-15) mm/hr Potassium (3.5-5.1) mmol/L BUN (9-20) mg/dL Creatinine (0.66-1.25) mg/dL Glucose (74-99) mg/dL Calcium (8.4-10.2) mg/dL Alkaline Phosphatase (38-126) U/L Total Creatine Kinase <20 L (55-170) U/L C-Reactive Protein 36.7 H (<10.0) mg/L Albumin (3.5-5.0) g/dL Ur Specific [place] (1.001-1.035) Urine Ketones (Negative) 11/07/17 11/07/17 11/07/17 Range/Units 13:05 13:05 13:05 WBC 11.7 H (3.8-10.6) k/uL Hgb 12.6 L (13.0-17.5) gm/dL Hct 37.9 L (39.0-53.0) % Neutrophils # 9.2 H (1.3-7.7) k/uL ESR (0-15) mm/hr Potassium 5.2 H (3.5-5.1) mmol/L BUN 37 H (9-20) mg/dL Creatinine 1.26 H (0.66-1.25) mg/dL Glucose 116 H (74-99) mg/dL Calcium 10.7 H (8.4-10.2) mg/dL Alkaline Phosphatase 201 H (38-126) U/L Total Creatine Kinase (55-170) U/L C-Reactive Protein (<10.0) mg/L Albumin 3.3 L (3.5-5.0) g/dL Ur Specific [place] 1.044 H (1.001-1.035) Urine Ketones Trace H (Negative) CT scan - abdomen: report reviewed CT scan - chest: report reviewed CT scan - pelvis: report reviewed Assessment and Plan (1) Renal mass Current Visit: Yes Status: Acute Priority: High Code(s): N28.89 - OTHER SPECIFIED DISORDERS OF KIDNEY AND URETER SNOMED Code(s): 044935031 (2) Liver lesion Current Visit: Yes Status: Acute Priority: High Code(s): K76.9 - LIVER DISEASE, UNSPECIFIED SNOMED Code(s): 852744203 (3) Bone lesion Current Visit: Yes Status: Acute Priority: High Code(s): M89.9 - DISORDER OF BONE, UNSPECIFIED SNOMED Code(s): 70830888 Plan: Dr. Knott reviewed concerning CT findings with patient and family at bedside. He discussed the need for biopsy to confirm a diagnosis. Patient is agreeable to biopsy. Liver has been recommended source for biopsy. Patient's last dose of Plavix was on the 5th so, we will discuss with IR and schedule a liver biopsy for next week out patient. Case discussed with Dr. Corrales, she will evaluate the esophagus during procedure to see if there is a mechanical reason for patient dyspagia. Agree with PEG tube placement for dysphagia and wt. loss/failure to thrive. Doctor attests: I performed a history and physical examination of this patient, discussed with dictator. I agree with dictators note, documented as a scribe.
[2017-11-08] MEDS ORDERED: IPRATROPIUM-ALBUTEROL 3 ML NEB INHALATION PRN (14:31)
[2017-11-08] MEDS ORDERED: ACETAMINOPHEN TAB 325 MG TAB PO PRN (14:32)
[2017-11-08] MEDS ORDERED: ONDANSETRON 4 MG/2 ML VIAL IVP PRN (14:32)
[2017-11-08] MEDS ORDERED: LORazepam 2 MG/ML INJ IV PRN (19:45)
[2017-11-08] MEDS: MORPHINE SULFATE 2 MG/ML SYRINGE IVP PRN ×2 (19:52→22:40)
[2017-11-08] MEDS ORDERED: MELATONIN 3 MG TABLET PO SCH (21:00)
[2017-11-08] MEDS ORDERED: LACTATED RINGERS 1,000 ML IV SCH (22:00)
[2017-11-08 23:29] VITALS: RESP 16
[2017-11-09] MEDS: SODIUM CHLORIDE 0.9% 1,000 ML IV SCH (05:51)
[2017-11-09 07:11] VITALS: BP 155/72; PULSE 69
--- NOTE | 2017-11-09 07:48 | P.HPIM ---
History of Present Illness H&P Date: 11/08/17 Chief Complaint: Difficulty swallowing This is an 82-year-old male patient of Dr. Monae with past medical history of coronary artery disease with stent placement, kidney stones, benign prostatic hypertrophy, CVA in 2017, right-sided brain aneurysm, pulmonary embolism and DVT greater than 10 years ago. Patient gives history that he has lost 70 pounds the past 5 years and 38 pounds of that in the past 6 months. He states he just can't swallow. He states it takes 40 minutes to get a hamburger down. He has most trouble with solid food. He has never had an EGD done. Patient also states that he is voiding about 10 times per day. Patient also complains of generalized malaise and weakness and no energy. He denies having any pain but feels uncomfortable all the time. He states that the last week he is having trouble swallowing big pills. He came in as an outpatient for speech therapy evaluation and was found to have 100% impaired swallow with recommendations for PEG tube. Patient has been admitted to the [facility] floor and consult with Dr. Corrales with plan for PEG tube placement tomorrow and feeding to start on Sunday. Vital signs are stable. BUN 37 creatinine 1.26, white count 11.7. Alkaline phosphatase is 201. Urinalysis was negative for infection. TSH is 5.250. Oncology consult appreciated. CT of the abdomen and pelvis revealed concern for metastatic renal cell cancer with suspected invasion of the left renal vein, left sided hydronephrosis, left renal asymmetric enhancement and infiltrative pattern, immune herbal hepatic lesions suspicious for metastasis and osseous expansile soft tissue metastatic lesions. Safe his biopsy would likely be the lateral distractive soft tissue mass of the right third rib. Review of Systems All systems: negative Constitutional: Reports anorexia, Reports fatigue, Reports lethargy, Reports malaise, Reports poor appetite, Reports weakness, Reports weight loss, Denies chills, Denies fever Eyes: denies blurred vision, denies pain Ears, nose, mouth and throat: Reports dysphagia, Denies dental pain, Denies headache, Denies hoarseness, Denies nasal congestion, Denies sore throat Cardiovascular: Denies chest pain, Denies decreased exercise tolerance, Denies dyspnea on exertion, Denies leg edema, Denies lightheadedness, Denies shortness of breath, Denies syncope Respiratory: Denies cough, Denies cough with sputum, Denies dyspnea, Denies excessive sputum, Denies hemoptysis, Denies home oxygen, Denies wheezing Gastrointestinal: Reports loss of appetite, Denies abdominal pain, Denies diarrhea, Denies nausea, Denies vomiting Musculoskeletal: Denies myalgias Integumentary: Denies pruritus, Denies rash, Denies unusual bruising, Denies wounds Neurological: Denies numbness, Denies weakness Psychiatric: Denies anxiety, Denies depression Endocrine: Denies fatigue, Denies weight change Past Medical History Past Medical History: Coronary Artery Disease (CAD), Eye Disorder Additional Past Medical History / Comment(s): HX OF KIDNEY STONES previously under the care of Dr. Pringle, a stroke in September 2016, a right-sided brain aneurysm, pulmonary embolism greater than 10 years ago with DVT History of Any Multi-Drug Resistant Organisms: None Reported Past Surgical History: Cholecystectomy, Heart Catheterization With Stent, Prostate Surgery Additional Past Surgical History / Comment(s): KIDNEY STONE SX, bilateral cataract removal and intraocular lens implants, TURP, colonoscopy done by Dr. Hoyt at age 76 was no abnormal findings. Past Anesthesia/Blood Transfusion Reactions: No Reported Reaction Date of Last Stent Placement:: 2006 Past Psychological History: No Psychological Hx Reported Smoking Status: Never smoker Additional Past Alcohol Use History / Comment(s): Patient is a lifelong nonsmoker. He denies any marijuana, street drug or alcohol use. He lives at home with his . - Past Family History Mother Family Medical History: No Reported History Additional Family Medical History / Comment(s): Mother at age 96 from old age but also was diagnosed with breast cancer at age 95. Father History Unknown: Yes Additional Family Medical History / Comment(s): Father at age 57 from suicide Sister(s) Additional Family Medical History / Comment(s): Patient has 2 stepsisters and no brothers. Medications and Allergies Home Medications Medication Instructions Recorded Confirmed Type Clopidogrel [Plavix] 75 mg PO DAILY #30 tab 09/22/16 11/07/17 Rx Allergies Allergy/AdvReac Type Severity Reaction Status Date / Time Sulfa (Sulfonamide Allergy Rash/Hives Verified 11/07/17 13:02 Antibiotics) Physical Exam Vitals: Vital Signs Temp Pulse Pulse Pulse Resp BP BP 11/08/17 06:20 97.4 F L 72 17 119/72 11/07/17 23:00 98.0 F 78 16 124/68 11/07/17 16:05 16 11/07/17 15:18 97.5 F L 71 18 131/74 11/07/17 12:52 97.0 F L 73 18 128/74 Pulse Ox 11/08/17 06:20 97 11/07/17 23:00 97 11/07/17 16:05 11/07/17 15:18 95 11/07/17 12:52 99 Intake and Output 11/07/17 11/08/17 11/08/17 22:59 06:59 14:59 Intake Total 1000 1000 Balance 1000 1000 Intake: Intake, IV Titration 1000 1000 Amount Sodium Chloride 0.9% 1, 1000 1000 000 ml @ 125 mls/hr IV . Q8H [facility] Rx#:[id number] Other: Voiding Method Diaper Diaper Diaper Incontinent Incontinent Incontinent # Voids 2 2 Weight 61.235 kg Gen: This is a thin cachectic appearing 82-year-old male. He is in bed and appears to be in no distress. HEENT: Head is atraumatic, normocephalic. Pupils equal, round. Sclerae is anicteric. NECK: Supple. No JVD. No lymphadenopathy. No thyromegaly. LUNGS: Clear to auscultation. No wheezes or rhonchi. No intercostal retractions. HEART: Regular rate and rhythm. No murmur. ABDOMEN: Flat. Soft. Bowel sounds are present. Left sided large abdominal mass. No tenderness. EXTREMITIES: No pedal edema. No calf tenderness. NEUROLOGICAL: Patient is awake, alert and oriented x3. Cranial nerves 2 through 12 are grossly intact. Results CBC & Chem 7: 11/07/17 13:05 11/07/17 13:05 Labs: Abnormal Lab Results - Last 24 Hours (Table) 11/07/17 11/07/17 11/07/17 Range/Units 09:35 13:05 13:05 WBC 11.7 H (3.8-10.6) k/uL Hgb 12.6 L (13.0-17.5) gm/dL Hct 37.9 L (39.0-53.0) % Neutrophils # 9.2 H (1.3-7.7) k/uL ESR 85 H (0-15) mm/hr Potassium (3.5-5.1) mmol/L BUN (9-20) mg/dL Creatinine (0.66-1.25) mg/dL Glucose (74-99) mg/dL Calcium (8.4-10.2) mg/dL Alkaline Phosphatase (38-126) U/L Total Creatine Kinase <20 L (55-170) U/L Albumin (3.5-5.0) g/dL Ur Specific [place] (1.001-1.035) Urine Ketones (Negative) 11/07/17 11/07/17 Range/Units 13:05 13:05 WBC (3.8-10.6) k/uL Hgb (13.0-17.5) gm/dL Hct (39.0-53.0) % Neutrophils # (1.3-7.7) k/uL ESR (0-15) mm/hr Potassium 5.2 H (3.5-5.1) mmol/L BUN 37 H (9-20) mg/dL Creatinine 1.26 H (0.66-1.25) mg/dL Glucose 116 H (74-99) mg/dL Calcium 10.7 H (8.4-10.2) mg/dL Alkaline Phosphatase 201 H (38-126) U/L Total Creatine Kinase (55-170) U/L Albumin 3.3 L (3.5-5.0) g/dL Ur Specific [place] 1.044 H (1.001-1.035) Urine Ketones Trace H (Negative) Thrombosis Risk Factor Assmnt - DVT/VTE Prophylaxis DVT/VTE Prophylaxis: Pharmacologic Prophylaxis ordered - Choose All That Apply Any of the Below Risk Factors Present?: No Other Risk Factors: Yes Each Risk Factor Represents 3 Points: Age 75 years or older, History of DVT/PE Other congenital or acquired thrombophilia - If yes, enter type in comment: No Thrombosis Risk Factor Assessment Total Risk Factor Score: 6 Thrombosis Risk Factor Assessment Level: High Risk Assessment and Plan Plan: 1. Dysphagia, failed swallow evaluation and need for PEG tube placement. Consult with Dr. Corrales is appreciated. Patient is scheduled for PEG tube placement and evaluate esophagus for stenosis, malignancy tomorrow. Feedings will start on Sunday. Plavix is on hold. IV fluids at 125 mL per hour. 2. 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 Oncology is on consult. Patient is to have biopsy. Morphine is available if needed as well as Zofran. Patient currently denies any pain. 3. Aspiration noted on modified barium swallow. Patient will be placed on DuoNeb treatments, incentive spirometry and repeat chest x-ray obtained in the morning. 4. History of coronary artery disease status post cardiac stent. 5. Stroke in September 2016. Patient is on Plavix only. This is on hold for procedures. 6. History of kidney stones previously under the care of Dr. Pringle. 7. Benign prostatic hypertrophy status post TURP. Monitor for urinary retention. 8. Right-sided brain aneurysm, stable patient is asymptomatic. 9. History of pulmonary embolism and DVT 10 years ago, stable no symptoms. 10. DVT prophylaxis. Patient will be started on heparin subcu after procedures. 11. GI prophylaxis. IV Protonix daily Patient will be admitted to the hospital for a minimum of 3 night stay. Discharge plan: This likely return home Impression and plan of care have been directed as dictated by the signing physician. Becki Rosen nurse practitioner acting as scribe for signing physician.
--- NOTE | 2017-11-09 10:45 | P.PN ---
Progress Note - Text Progress Note Date: 11/09/17 The patient and family had been discussions overnight and decided to go into hospice. They're no longer chested and having a PEG tube placed or any aggressive therapy. Please consult me if they change their minds and would like to readdress the PEG tube.
[2017-11-09] MEDS: MORPHINE SULFATE 2 MG/ML SYRINGE IVP PRN (13:40)
--- NOTE | 2017-11-09 14:46 | P.DS ---
Providers Date of admission: 11/07/17 14:52 Expected date of discharge: 11/09/17 Attending physician: Shelley Calvillo Consults: 11/07/17 14:53 Consult Physician Routine Consulting Provider: Rhonda Corrales Consult Reason/Comments: PEG tube placement Do you want consulting provider notified?: Yes 11/07/17 14:54 Consult Physician Routine Consulting Provider: Kendrick Knott Consult Reason/Comments: Renal cell cancer with metastasis Do you want consulting provider notified?: Yes 11/08/17 14:19 Consult Physician Routine Consulting Provider: Sravan Rocha Consult Reason/Comments: biopsy, 3rd rib? Do you want consulting provider notified?: Yes Primary care physician: [facility] Course: This is an 82-year-old male patient of Dr. Monae with past medical history of coronary artery disease with stent placement, kidney stones, benign prostatic hypertrophy, CVA in 2017, right-sided brain aneurysm, pulmonary embolism and DVT greater than 10 years ago. Patient gives history that he has lost 70 pounds the past 5 years and 38 pounds of that in the past 6 months. He states he just can't swallow. He states it takes 40 minutes to get a hamburger down. He has most trouble with solid food. He has never had an EGD done. Patient also states that he is voiding about 10 times per day. Patient also complains of generalized malaise and weakness and no energy. He denies having any pain but feels uncomfortable all the time. He states that the last week he is having trouble swallowing big pills. He came in as an outpatient for speech therapy evaluation and was found to have 100% impaired swallow with recommendations for PEG tube. Patient has been admitted to the [facility] floor and consult with Dr. Corrales with plan for PEG tube placement tomorrow and feeding to start on Sunday. Vital signs are stable. BUN 37 creatinine 1.26, white count 11.7. Alkaline phosphatase is 201. Urinalysis was negative for infection. TSH is 5.250. Oncology consult appreciated. CT of the abdomen and pelvis revealed concern for metastatic renal cell cancer with suspected invasion of the left renal vein, left sided hydronephrosis, left renal asymmetric enhancement and infiltrative pattern, immune herbal hepatic lesions suspicious for metastasis and osseous expansile soft tissue metastatic lesions. Safe his biopsy would likely be the lateral distractive soft tissue mass of the right third rib. 11/09: Patient has decided that he does not want to pursue any aggressive treatment including PEG tube placement. Patient family has met with [facility] and he would like to go to the [facility]. Patient will be transitioned to Respite care in the hospital until bed is available at [facility]. He is taking the morphine and although he does not have complaints of pain it is making him feel better and is able to sleep. Discharge diagnoses: 1. Dysphagia, failed swallow evaluation 2. 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 3. Aspiration noted on modified barium swallow. 4. History of coronary artery disease status post cardiac stent. 5. Stroke in September 2016. 6. History of kidney stones previously under the care of Dr. Pringle. 7. Benign prostatic hypertrophy status post TURP. 8. Right-sided brain aneurysm, stable patient is asymptomatic. 9. History of pulmonary embolism and DVT 10 years ago, stable no symptoms. Discharge plan: Transition to inpatient Respite Care under [facility] Impression and plan of care have been directed as dictated by the signing physician. Becki Rosen nurse practitioner acting as scribe for signing physician. Patient Condition at Discharge: Stable Plan - Discharge Summary Discharge Rx Participant: No New Discharge Prescriptions: No Action Clopidogrel [Plavix] 75 mg PO DAILY #30 tab Discharge Medication List Clopidogrel [Plavix] 75 mg PO DAILY #30 tab 09/22/16 [Rx] Follow up Appointment(s)/Referral(s): Sravan Monae MD [Primary Care Provider] - 1-2 days Discharge Disposition: DISCH TO HOSPICE MED FACILTY
== END 2017-11-09 15:38 | disposition hospice, inpatient (51) ==
LOC: EC 12:42 → 5ONC 14:52 → INTOOBSV 14:52
PROVIDERS: ADMIT Family Medicine; ATTEND Family Medicine
DX: R13.10 Dysphagia, unspecified (principal); R93.3 Abnormal findings on diagnostic imaging of other parts of digestive tract; R94.8 Abnormal results of function studies of other organs and systems; N28.89 Other specified disorders of kidney and ureter; K76.9 Liver disease, unspecified; M89.9 Disorder of bone, unspecified; I67.1 Cerebral aneurysm, nonruptured; R62.7 Adult failure to thrive; E86.0 Dehydration; N13.30 Unspecified hydronephrosis; R53.1 Weakness; R53.81 Other malaise; I25.10 Atherosclerotic heart disease of native coronary artery without angina pectoris; R64 Cachexia; Z68.1 Body mass index [BMI] 19.9 or less, adult; G47.9 Sleep disorder, unspecified; N40.0 Benign prostatic hyperplasia without lower urinary tract symptoms; H26.9 Unspecified cataract; Z95.5 Presence of coronary angioplasty implant and graft; Z79.02 Long term (current) use of antithrombotics/antiplatelets; Z88.2 Allergy status to sulfonamides; Z86.711 Personal history of pulmonary embolism; Z87.442 Personal history of urinary calculi; Z86.718 Personal history of other venous thrombosis and embolism; Z86.73 Personal history of transient ischemic attack (TIA), and cerebral infarction without residual deficits; Z80.3 Family history of malignant neoplasm of breast; Z81.8 Family history of other mental and behavioral disorders
CPT/HCPCS: 99285 ×2; 96361 ×5; 96376 ×2; 96374; 93005; 92611; 80061; 80053; 85652; 82550; 82553; 83735; 84436; 84443; 84484; 85025; 86140; 81003; 83036; 74230; 71260; 74177; 36415; 70544; G0378 ×4; J2270 ×2; Q9967

== ENCOUNTER 2017-11-09 15:40 | Inpatient (IN) | payer OTHER ==
[2017-11-09] MEDS: MORPHINE SULFATE 2 MG/ML SYRINGE IVP PRN ×2 (19:42→22:41)
[2017-11-10] MEDS: MORPHINE SULFATE 2 MG/ML SYRINGE IVP PRN ×6 (02:11→22:35)
--- NOTE | 2017-11-10 11:06 | P.HPIM ---
History of Present Illness H&P Date: 11/10/17 Chief Complaint: RCC with mets This is an 82-year-old male patient of Dr. Monae with past medical history of coronary artery disease with stent placement, kidney stones, benign prostatic hypertrophy, CVA in 2017, right-sided brain aneurysm, pulmonary embolism and DVT greater than 10 years ago. Patient gives history that he has lost 70 pounds the past 5 years and 38 pounds of that in the past 6 months. He states he just can't swallow. He states it takes 40 minutes to get a hamburger down. He has most trouble with solid food. He has never had an EGD done. Patient also states that he is voiding about 10 times per day. Patient also complains of generalized malaise and weakness and no energy. He denies having any pain but feels uncomfortable all the time. He states that the last week he is having trouble swallowing big pills. He came in as an outpatient for speech therapy evaluation and was found to have 100% impaired swallow with recommendations for PEG tube. Patient has been admitted to [facility] floor and consult with Dr. Corrales with plan for PEG tube placement tomorrow and feeding to start on Sunday. Vital signs are stable. BUN 37 creatinine 1.26, white count 11.7. Alkaline phosphatase is 201. Urinalysis was negative for infection. TSH is 5.250. Oncology consult appreciated. CT of the abdomen and pelvis revealed concern for metastatic renal cell cancer with suspected invasion of the left renal vein, left sided hydronephrosis, left renal asymmetric enhancement and infiltrative pattern, immune herbal hepatic lesions suspicious for metastasis and osseous expansile soft tissue metastatic lesions. Safe his biopsy would likely be the lateral distractive soft tissue mass of the right third rib. 11/09: Patient has decided that he does not want to pursue any aggressive treatment including PEG tube placement. Patient family has met with [facility] and he would like to go to the [facility]. Patient will be transitioned to Respite care in the hospital until bed is available at [facility]. He is taking the morphine and although he does not have complaints of pain it is making him feel better and is able to sleep. Review of Systems All 14 systems reviewed and negative except as above Past Medical History Past Medical History: Coronary Artery Disease (CAD), Eye Disorder Additional Past Medical History / Comment(s): HX OF KIDNEY STONES previously under the care of Dr. Pringle, a stroke in September 2016, a right-sided brain aneurysm, pulmonary embolism greater than 10 years ago with DVT History of Any Multi-Drug Resistant Organisms: None Reported Past Surgical History: Cholecystectomy, Heart Catheterization With Stent, Prostate Surgery Additional Past Surgical History / Comment(s): KIDNEY STONE SX, bilateral cataract removal and intraocular lens implants, TURP, colonoscopy done by Dr. Hoyt at age 76 was no abnormal findings. Past Anesthesia/Blood Transfusion Reactions: No Reported Reaction Date of Last Stent Placement:: 2006 Past Psychological History: No Psychological Hx Reported Smoking Status: Never smoker Past Alcohol Use History: None Reported Additional Past Alcohol Use History / Comment(s): Patient is a lifelong nonsmoker. He denies any marijuana, street drug or alcohol use. He lives at home with his . Past Drug Use History: None Reported - Past Family History Mother Family Medical History: No Reported History Additional Family Medical History / Comment(s): Mother at age 96 from old age but also was diagnosed with breast cancer at age 95. Father History Unknown: Yes Additional Family Medical History / Comment(s): Father at age 57 from suicide Sister(s) Additional Family Medical History / Comment(s): Patient has 2 stepsisters and no brothers. Medications and Allergies Home Medications Medication Instructions Recorded Confirmed Type Clopidogrel [Plavix] 75 mg PO DAILY #30 tab 09/22/16 11/07/17 Rx Allergies Allergy/AdvReac Type Severity Reaction Status Date / Time Sulfa (Sulfonamide Allergy Rash/Hives Verified 11/07/17 13:02 Antibiotics) Physical Exam Vitals: Intake and Output 11/09/17 11/10/17 11/10/17 22:59 06:59 14:59 Intake Total 100 120 Balance 100 120 Intake: Oral 100 120 Other: Voiding Method Diaper Urinal Incontinent # Voids 1 3 Weight 58.967 kg Gen.: lethargic Heart: Normal S1-S2 Lungs: Clear to auscultation bilaterally Abdomen: Soft, no tenderness, positive bowel sounds in all 4 quadrant no guarding or rebound Skin: No new rash Psych: Alert and oriented 3 Neuro: No focal deficit Assessment and Plan Plan: 1. Dysphagia, failed swallow evaluation 2. 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 3. Aspiration noted on modified barium swallow. 4. History of coronary artery disease status post cardiac stent. 5. Stroke in September 2016. 6. History of kidney stones previously under the care of Dr. Pringle. 7. Benign prostatic hypertrophy status post TURP. 8. Right-sided brain aneurysm, stable patient is asymptomatic. 9. History of pulmonary embolism and DVT 10 years ago, stable no symptoms. We will continue supportive care, pain medication and follow-up with family request closely consider discharging once but the available at the facility plan discussed with the nursing staff and patient's family at the bedside
[2017-11-10] MEDS: LORazepam 1 MG TAB PO PRN (21:02)
[2017-11-11] MEDS: MORPHINE SULFATE 2 MG/ML SYRINGE IVP PRN ×6 (04:31→22:38)
--- NOTE | 2017-11-11 16:09 | P.PN ---
Subjective Progress Note Date: 11/11/17 Principal diagnosis: Renal cell carcinoma with metastasis Family at the bedside reporting good night with good pain control patient would open his eyes for short amount of time like to the family and then go back to sleep still on IV push his morphine as needed basis and patient seems to be comfortable at this point Objective - Vital Signs Vital signs: Intake & Output 11/10/17 11/11/17 11/11/17 18:59 06:59 18:59 Intake Total 50 Balance 50 Intake: IV 30 saline flush 30 Oral 20 Other: Voiding Method Urinal Diaper Diaper Incontinent Incontinent # Voids 4 1 - Exam Gen.: Lethargic Heart: Normal S1-S2 Lungs: Diminished bilaterally Abdomen: Soft, no tenderness, positive bowel sounds in all 4 quadrant no guarding or rebound Skin: No new rash Assessment and Plan Plan: 1. Dysphagia, failed swallow evaluation 2. 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 3. Aspiration noted on modified barium swallow. 4. History of coronary artery disease status post cardiac stent. 5. Stroke in September 2016. 6. History of kidney stones previously under the care of Dr. Pringle. 7. Benign prostatic hypertrophy status post TURP. 8. Right-sided brain aneurysm, stable patient is asymptomatic. 9. History of pulmonary embolism and DVT 10 years ago, stable no symptoms. Plan discussed with the family at length where we would like to continue with pain management and consider discharging her family request to a hospice home would have correctional case records supervisor discussed with the family in the morning the possibility of discharge to hospice home and continue supportive care
[2017-11-11] MEDS: LORazepam 1 MG TAB PO PRN (20:01)
[2017-11-11] MEDS: LORazepam 2 MG/ML INJ IV PRN (20:21)
[2017-11-12] MEDS: MORPHINE SULFATE 2 MG/ML SYRINGE IVP PRN ×3 (01:46→07:32)
[2017-11-12] MEDS: LORazepam 2 MG/ML INJ IV PRN ×2 (02:39→06:30)
[2017-11-12] MEDS ORDERED: ATROPINE OPHTH SOLN 1% 5ML BTL SUBLINGUAL PRN (09:23)
[2017-11-12] MEDS: MORPHINE SULFATE 2 MG/ML SYRINGE IVP SCH ×5 (10:22→23:16)
[2017-11-12 10:24] VITALS: BMI 17.6
[2017-11-12] MEDS: LORazepam 2 MG/ML INJ IV SCH ×3 (11:53→21:23)
--- NOTE | 2017-11-12 14:39 | P.PN ---
Subjective Progress Note Date: 11/12/17 This is an 82-year-old male patient of Dr. Monae with past medical history of coronary artery disease with stent placement, kidney stones, benign prostatic hypertrophy, CVA in 2017, right-sided brain aneurysm, pulmonary embolism and DVT greater than 10 years ago. Patient gives history that he has lost 70 pounds the past 5 years and 38 pounds of that in the past 6 months. He states he just can't swallow. He states it takes 40 minutes to get a hamburger down. He has most trouble with solid food. He has never had an EGD done. Patient also states that he is voiding about 10 times per day. Patient also complains of generalized malaise and weakness and no energy. He denies having any pain but feels uncomfortable all the time. He states that the last week he is having trouble swallowing big pills. He came in as an outpatient for speech therapy evaluation and was found to have 100% impaired swallow with recommendations for PEG tube. Patient has been admitted to the [facility] floor and consult with Dr. Corrales with plan for PEG tube placement tomorrow and feeding to start on Sunday. Vital signs are stable. BUN 37 creatinine 1.26, white count 11.7. Alkaline phosphatase is 201. Urinalysis was negative for infection. TSH is 5.250. Oncology consult appreciated. CT of the abdomen and pelvis revealed concern for metastatic renal cell cancer with suspected invasion of the left renal vein, left sided hydronephrosis, left renal asymmetric enhancement and infiltrative pattern, immune herbal hepatic lesions suspicious for metastasis and osseous expansile soft tissue metastatic lesions. Safe his biopsy would likely be the lateral distractive soft tissue mass of the right third rib. 11/09: Patient has decided that he does not want to pursue any aggressive treatment including PEG tube placement. Patient family has met with [facility] and he would like to go to the [facility]. Patient will be transitioned to Respite care in the hospital until bed is available at [facility]. He is taking the morphine and although he does not have complaints of pain it is making him feel better and is able to sleep. 11/11: Family at the bedside reporting good night with good pain control patient would open his eyes for short amount of time like to the family and then go back to sleep still on IV push his morphine as needed basis and patient seems to be comfortable at this point 11/12: Patient is currently unresponsive. Patient is expected to pass soon. IV push morphine will be transitioned over to morphine drip. Family members at the bedside have been updated and questions answered. Objective - Vital Signs Vital signs: Intake & Output 11/11/17 11/12/17 11/12/17 18:59 06:59 18:59 Intake Total 20 30 Balance 20 30 Weight 58.967 kg Intake: IV 20 30 saline flush 20 30 Other: Voiding Method Diaper Urinal Urinal Incontinent Diaper Diaper Incontinent Incontinent # Voids 2 1 1 - Exam Gen.: Unresponsive Lungs: Respirations slow Skin: No new rash Assessment and Plan Plan: 1. Dysphagia, failed swallow evaluation 2. 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 3. Aspiration noted on modified barium swallow. 4. History of coronary artery disease status post cardiac stent. 5. Stroke in September 2016. 6. History of kidney stones previously under the care of Dr. Pringle. 7. Benign prostatic hypertrophy status post TURP. 8. Right-sided brain aneurysm, stable patient is asymptomatic. 9. History of pulmonary embolism and DVT 10 years ago, stable no symptoms. Plan discussed with the family at length where we would like to continue with pain management and continue supportive care. Discharged to hospice home has been canceled as patient appears to be actively dying. Impression and plan of care have been directed as dictated by the signing physician. Becki Rosen nurse practitioner acting as scribe for signing physician.
[2017-11-13] MEDS: LORazepam 2 MG/ML INJ IV SCH ×3 (00:26→08:27)
[2017-11-13] MEDS: MORPHINE SULFATE 2 MG/ML SYRINGE IVP SCH ×3 (02:31→10:39)
[2017-11-13 02:36] VITALS: RESP 21
[2017-11-13] MEDS: MORPHINE SULFATE 2 MG/ML SYRINGE IVP PRN ×2 (10:40→15:08)
--- NOTE | 2017-11-15 11:27 | P.DS ---
Providers Date of admission: 11/09/17 15:40 Expected date of discharge: 11/13/17 Attending physician: Shelley Calvillo Primary care physician: [facility] Course: This is an 82-year-old male patient of Dr. Monae with past medical history of coronary artery disease with stent placement, kidney stones, benign prostatic hypertrophy, CVA in 2017, right-sided brain aneurysm, pulmonary embolism and DVT greater than 10 years ago. Patient gives history that he has lost 70 pounds the past 5 years and 38 pounds of that in the past 6 months. He states he just can't swallow. He states it takes 40 minutes to get a hamburger down. He has most trouble with solid food. He has never had an EGD done. Patient also states that he is voiding about 10 times per day. Patient also complains of generalized malaise and weakness and no energy. He denies having any pain but feels uncomfortable all the time. He states that the last week he is having trouble swallowing big pills. He came in as an outpatient for speech therapy evaluation and was found to have 100% impaired swallow with recommendations for PEG tube. Patient has been admitted to the [facility] floor and consult with Dr. Corrales with plan for PEG tube placement tomorrow and feeding to start on Sunday. Vital signs are stable. BUN 37 creatinine 1.26, white count 11.7. Alkaline phosphatase is 201. Urinalysis was negative for infection. TSH is 5.250. Oncology consult appreciated. CT of the abdomen and pelvis revealed concern for metastatic renal cell cancer with suspected invasion of the left renal vein, left sided hydronephrosis, left renal asymmetric enhancement and infiltrative pattern, immune herbal hepatic lesions suspicious for metastasis and osseous expansile soft tissue metastatic lesions. Safe his biopsy would likely be the lateral distractive soft tissue mass of the right third rib. 11/09: Patient has decided that he does not want to pursue any aggressive treatment including PEG tube placement. Patient family has met with [facility] and he would like to go to the [facility]. Patient will be transitioned to Respite care in the hospital until bed is available at [facility]. He is taking the morphine and although he does not have complaints of pain it is making him feel better and is able to sleep. 11/11: Family at the bedside reporting good night with good pain control patient would open his eyes for short amount of time like to the family and then go back to sleep still on IV push his morphine as needed basis and patient seems to be comfortable at this point 11/12: Patient is currently unresponsive. Patient is expected to pass soon. IV push morphine will be transitioned over to morphine drip. Family members at the bedside have been updated and questions answered. 11/13: IV push morphine has been transitioned from scheduled to when necessary as patient is not requiring this frequently. Patient remains unresponsive and family has determined that they would like to move him today as his last day of respite will be ending tomorrow. Patient will be going to the [facility] home. All arrangements have been completed. Discharge diagnoses: 1. Dysphagia, failed swallow evaluation 2. 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 3. Aspiration noted on modified barium swallow. 4. History of coronary artery disease status post cardiac stent. 5. Stroke in September 2016. 6. History of kidney stones previously under the care of Dr. Pringle. 7. Benign prostatic hypertrophy status post TURP. 8. Right-sided brain aneurysm, stable patient is asymptomatic. 9. History of pulmonary embolism and DVT 10 years ago, stable no symptoms. Impression and plan of care have been directed as dictated by the signing physician. Becki Rosen nurse practitioner acting as scribe for signing physician. Patient Condition at Discharge: Stable Plan - Discharge Summary New Discharge Prescriptions: New Atropine Ophth Soln 1% 5Ml [Isopto Atropine 1% 5Ml] 2 drops PO Q4HR PRN #1 bottle PRN Reason: Secretions LORazepam ORAL CONC [Ativan Intensol] 2 mg PO Q4HR PRN #30 ml PRN Reason: Anxiety MORPHINE ORAL MAYE CONC 20mg/mL [Roxanol Oral Soln Conc 20MG/ML] 5 mg PO Q4H PRN #30 ml PRN Reason: Pain Discontinued Clopidogrel [Plavix] 75 mg PO DAILY #30 tab Discharge Medication List Atropine Ophth Soln 1% 5Ml [Isopto Atropine 1% 5Ml] 2 drops PO Q4HR PRN #1 bottle 11/13/17 [Rx] LORazepam ORAL CONC [Ativan Intensol] 2 mg PO Q4HR PRN #30 ml 11/13/17 [Rx] MORPHINE ORAL MAYE CONC 20mg/mL [Roxanol Oral Soln Conc 20MG/ML] 5 mg PO Q4H PRN #30 ml 11/13/17 [Rx] Follow up Appointment(s)/Referral(s): Shelley Calvillo MD [Primary Care Provider] - As Needed Patient Instructions/Handouts: Diphenoxylate/Atropine (By mouth), Lorazepam ( By mouth), Morphine, Rapid Release (By mouth), Hospice (DC) Discharge Disposition: DISCH TO HOSPICE MED FACILTY
== END 2017-11-13 16:30 | disposition hospice, inpatient (51) | DRG 687 ==
LOC: 5ONC 15:40
PROVIDERS: ADMIT Family Medicine; ATTEND Family Medicine
DX: C64.9 Malignant neoplasm of unspecified kidney, except renal pelvis (principal); C78.7 Secondary malignant neoplasm of liver and intrahepatic bile duct; C79.51 Secondary malignant neoplasm of bone; N13.30 Unspecified hydronephrosis; Z68.1 Body mass index [BMI] 19.9 or less, adult; I25.10 Atherosclerotic heart disease of native coronary artery without angina pectoris; N40.0 Benign prostatic hyperplasia without lower urinary tract symptoms; R13.10 Dysphagia, unspecified; Z79.02 Long term (current) use of antithrombotics/antiplatelets; Z80.3 Family history of malignant neoplasm of breast; Z86.711 Personal history of pulmonary embolism; Z86.718 Personal history of other venous thrombosis and embolism; Z86.73 Personal history of transient ischemic attack (TIA), and cerebral infarction without residual deficits; Z87.442 Personal history of urinary calculi; Z95.5 Presence of coronary angioplasty implant and graft; Z98.42 Cataract extraction status, left eye; Z98.41 Cataract extraction status, right eye; Z96.1 Presence of intraocular lens; I67.1 Cerebral aneurysm, nonruptured; Z51.5 Encounter for palliative care; R63.4 Abnormal weight loss; Z88.2 Allergy status to sulfonamides